=== PATIENT | female | born 2005 | race Hispanic/Latino ===

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

== ENCOUNTER 2023-02-13 17:36 | Emergency (ER) | payer OTHER ==
--- OUTSIDE RECORDS SUMMARY | 2023-02-13 17:41 | XMS REPORT | Continuity of Care Document ---
:2005 Author Organization [facility] [place] t Address [address] [place] [address] Care Team Providers Name Role Phone IVY GRECO Primary Care Physician Unavailable Ivy Greco Attending Clinician Unavailable ANABELA PHOENIX Attending Clinician Unavailable ANABELA PHOENIX Attending Clinician Unavailable Frankie ROMAN, Manny Attending Clinician MANNY DAVID Attending Clinician Unavailable Doctor Unassigned, [place] Attending Clinician Unavailable IVORY BURROWS Attending Clinician Unavailable Ivory Burrows Attending Clinician Luis Gallardo MD Attending Clinician Chris London MD Attending Clinician KRANTHI WAGNER Attending Clinician Unavailable Theresa Lima PA-C Attending Clinician THERESA LIMA Attending Clinician Unavailable Brenda Gordon Attending Clinician Manuel Crowder MD Attending Clinician Debbie Webb MD Attending Clinician DEBBIE WEBB Attending Clinician Unavailable IVORY BURROWS Admitting Clinician Unavailable Payers Payer Name Policy Type Policy Number Effective Date Expiration Date S jered [place] [id number] 2020 CHILDREN'S 00:00:00 [place] [id number] 2022 STAR 00:00:00 MEDICAID [facility] [id number] 2020 STAR 00:00:00 [place] [facility] C1 [id number] 2013 [facility] HEALTH PLAN 00:00:00 - [facility] Problems Condition Condition Condition Status Onset Resolution Last Treating Co mments Source Name Details Category Date Date Treatment Clinician Date Dysuria Dysuria Disease Active Univers 4-20 ity of 00:00: [address] Branch Sprain of Sprain of Disease [...] alth 00:00: 00 Herpes Herpes Disease Active 0 Univers simplex simplex 8-10 [place]y [place] Screen for Screen for Disease Active U nivers sexually sexually 3-19 [place] transmit[place] d diseases 00 Ri dical Branch 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 [facility] [id number] Panic Problem Active Common disorder Spirit [episodic - CHI paroxysmal [facility] anxiety] [facility] [id number] Generalize Problem Active Com mon d anxiety Spirit disorder - [facility] [id number] 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 [facility] prior episode [id number] Primary Problem Active Common insomnia Spirit - [facility] Allergies, Adverse Reactions, Alerts Allergy Allergy Status Severity Reaction(s) Onset Inactive Treating Comm ents Source Name Type Date Date Clinician NO KNOWN Drug Active Univers ALLERGIE Class ity of S [facility] NO KNOWN Allergy Active [facility] Social History Social Habit Start Date Stop Date Quantity Comments Source History [facility] Alcohol Std Drinks History [facility] Alcohol Binge History of Tobacco Common Spirit - Use [facility] Exposure to Not sure University of SARS-CoV-2 (event) [facility] Sexual orientation [facility] History of Social 2023-01-10 2023-01-10 Univers ity of function 00:00:00 00:00:00 [facility] Alcohol intake 2021-10-26 2021-10-26 Ex-drinker BHARGAV [facility] Ajit es 00:00:00 00:00:00 (finding) [facility] Tobacco use and 2021-10-07 2021-10-[address] [facility] [address] Sakshi kes exposure 00:00:00 00:00:00 tobacco non-user [facility] History [facility] 2020-09-24 2020-09-24 1 [facility] Alcohol Frequency 00:00:00 00:00:00 Sex Assigned At [birth year] BHARGAV Jacobson kes 00:00:00 00:00:00 [facility] Smoking Status Start Date Stop Date Source Never smoked tobacco [facility] Medications Ordered Filled Start Stop Current Ordering Indication Dosage Frequency Signature Comments Components Source Medication Medication Date Date Medication? Clinician (SIG) Name Name metroNIDAZO 2022-03 Yes [id number] 500mg Take 1 Univers LE (FLAGYL) 2-02 tablet by ity of 500 mg 00:00: mouth [place] tablet 00 every 12 Medical (twelve) Branch hours. fluconazole 2022-03- Yes [id number] 150mg Take 1 Univers (DIFLUCAN) 2-02 -03 tablet by ity of 150 mg 00:00[place] 05:59 [place] :[place] now for 1 Medical dose. Branch metroNIDAZO 2022-03 Yes [id number] 500mg Take 1 Univers LE (FLAGYL) 0-31 tablet by ity of 500 mg 00:00: mouth [place] tablet 00 every 12 Medical (twelve) Branch hours. metroNIDAZO 2022-03 Yes [id number] 500mg Take 1 Univers LE (FLAGYL) 0-31 tablet by ity of 500 mg 00:00: mouth [place] tablet 00 every 12 Medical (twelve) Branch hours. metroNIDAZO 2022-03 Yes [id number] 500mg Take 1 Univers LE (FLAGYL) 0-31 tablet by ity of 500 mg 00:00: mouth [place] tablet 00 every 12 Medical (twelve) Branch hours. metroNIDAZO 2022-03 Yes [id number] 500mg Take 1 Univers LE (FLAGYL) 0-31 tablet by ity of 500 mg 00:00: mouth [place] tablet 00 every 12 Medical (twelve) Branch hours. metroNIDAZO 2022-03 Yes [id number] 500mg Take 1 Univers LE (FLAGYL) 0-31 tablet by ity of 500 mg 00:00: mouth [place] tablet 00 every 12 Medical (twelve) Branch hours. metroNIDAZO 2022-03 Yes [id number] 500mg Take 1 Univers LE (FLAGYL) 0-31 tablet by ity of 500 mg 00:00: mouth [place] tablet 00 every 12 Medical (twelve) Branch hours. metroNIDAZO 2022-03 Yes [id number] 500mg Take 1 Univers LE (FLAGYL) 0-31 tablet by ity of 500 mg 00:00: mouth [place] tablet 00 every 12 Medical (twelve) Branch hours. metroNIDAZO 2022-03 Yes [id number] 500mg Take 1 Univers LE (FLAGYL) 0-31 tablet by ity of 500 mg 00:00: mouth [place] tablet 00 every 12 Medical (twelve) Branch hours. Nitrofurant 2022- No [id number] 100mg Take 1 Univers oin&Nit. 4-24 05-02 [...] MG tablet 14:01: daily. Medica l 54 Center busPIRone Yes 15mg Take [address] (BUSPAR) 15 8-15 by mouth [facility] MG tablet 14:01: as needed. Me dical 54 Center traZODone Yes 50mg QD Take [address] (DESYREL) 8-15 by mouth [facility] 50 MG 14:01: nightly. Medical tablet 54 Center etonogestre 0 Yes 68mg [address] [facility] L 8-15 Subdermal [facility] (Nexplanon) 14:01: route Medic al 68 mg 54 once. Center implant citalopram 0 Yes 20mg QD Take [address] (CeleXA) 20 8-15 by mouth Luke [facility] MG tablet 14:01: daily. Medica l 54 Center busPIRone 0 Yes 15mg Take [address] (BUSPAR) 15 8-15 by mouth [facility] MG tablet 14:01: as needed. Me dical 54 Center traZODone 0 Yes 50mg QD Take [address] (DESYREL) 8-15 by mouth [facility] 50 MG 14:01: nightly. Medical tablet 54 Center etonogestre 0 Yes 68mg [address] [facility] L 8-15 Subdermal [facility] (Nexplanon) 14:01: route Medic al 68 mg 54 once. Center implant citalopram 0 Yes 20mg QD Take [address] (CeleXA) 20 8-15 by mouth [facility] MG tablet 14:01: daily. Medica l 54 Center busPIRone 0 Yes 15mg Take [address] (BUSPAR) 15 8-15 by mouth [facility] MG tablet 14:01: as needed. Ri dical 54 Center traZODone 0 Yes 50mg QD Take [address] (DESYREL) 8-15 by mouth [facility] 50 MG 14:01: nightly. Medical tablet 54 Center etonogestre 0 Yes 68mg [address] [facility] L 8-15 Subdermal [facility] (Nexplanon) 14:01: route Medic al 68 mg 54 once. Center implant fluconazole 2021- No [id number] 150mg Take 1 Univers 150 mg 3-24 03-25 tablet by ity of tablet 00:00: 04:59 [place] now for 1 Medical dose. Branch traZODone 2021-0 Yes Univers 50 mg 3-06 ity of tablet 00:00: [place] 00 Medical Branch traZODone 2021-0 Yes Univers 50 mg 3-06 ity of tablet 00:00: [place] 00 Medical Branch traZODone 2022-0 Yes Univers 50 mg 3-06 ity of tablet 00:00: [place] 00 Medical Branch traZODone 2022-0 Yes Univers 50 mg 3-06 ity of tablet 00:00: [place] 00 Medical Branch traZODone 2-0 Yes Univers 50 mg 3-06 ity of tablet 00:00: [place] 00 Medical Branch traZODone 2022-0 Yes Univers 50 mg 3-06 ity of tablet 00:00: [place] 00 Medical Branch traZODone 2022-0 Yes Univers 50 mg 3-06 ity of tablet 00:00: [place] 00 Medical Branch traZODone 2-0 Yes Univers 50 mg 3-06 ity of tablet 00:00: [place] Medical [facility] traZODone 2-0 Yes Univers 50 mg 3-06 ity of tablet 00:00: [place] Medical [facility] traZODone 2022-0 Yes Univers 50 mg 3-06 ity of tablet 00:00: [place] 00 Medical Branch traZODone 2-0 Yes Univers 50 mg 3-06 ity of tablet 00:00: [place] 00 Medical Branch traZODone 2022-0 Yes Univers 50 mg 3-06 ity of tablet 00:00: [place] 00 Medical Branch traZODone 2-0 Yes Univers 50 mg 3-06 ity of tablet 00:00: [place] 00 Medical Branch traZODone 2022-0 Yes Univers 50 mg 3-06 ity of tablet 00:00: [place] 00 Medical Branch traZODone 2022-0 Yes Univers 50 mg 3-06 ity of tablet 00:00: [place] 00 Medical Branch traZODone 2022-0 Yes Univers 50 mg 3-06 ity of tablet 00:00: [place] [address] Medical Branch citalopram 2-0 Yes 20mg Take 1 Unive rs 20 mg 2-24 tablet by ity of tablet 00:00: mouth in [place] the Medical morning. Branch citalopram 2-0 Yes 20mg Take 1 Unive rs 20 mg 2-24 tablet by ity of tablet 00:00: mouth in [place] the Medical morning. Branch citalopram 2-0 Yes 20mg Take 1 Unive rs 20 mg 2-24 tablet by ity of tablet 00:00: mouth in [place] the Medical morning. Branch citalopram 2022-0 Yes 20mg Take 1 Unive rs 20 mg 2-24 tablet by ity of tablet 00:00: mouth in [place] the Medical morning. Branch citalopram 2022-0 Yes 20mg Take 1 Unive rs 20 mg 2-24 tablet by ity of tablet 00:00: mouth in [place] the Medical morning. Branch citalopram 2022-0 Yes 20mg Take 1 Unive rs 20 mg 2-24 tablet by ity of tablet 00:00: mouth in [place] the Medical morning. Branch citalopram 2022-0 Yes 20mg Take 1 Unive rs 20 mg 2-24 tablet by ity of tablet 00:00: mouth in [place] the Medical morning. Branch citalopram 2022-0 Yes 20mg Take 1 Unive rs 20 mg 2-24 tablet by ity of tablet 00:00: mouth in [place] the Medical morning. Branch citalopram 2022-0 Yes 20mg Take 1 Unive rs 20 mg 2-24 tablet by ity of tablet 00:00: mouth in [place] the Medical morning. Branch citalopram 2022-0 Yes 20mg Take 1 Unive rs 20 mg 2-24 tablet by ity of tablet 00:00: mouth in [place] the Medical morning. Branch citalopram 2022-0 Yes 20mg Take 1 Unive rs 20 mg 2-24 tablet by ity of tablet 00:00: mouth in [place] the Medical morning. Branch citalopram 2022-0 Yes 20mg Take 1 Unive rs 20 mg 2-24 tablet by ity of tablet 00:00: mouth in [place] the Medical morning. Branch citalopram 2022-0 Yes 20mg Take 20 mg U nivers 20 mg 2-24 by mouth ity of tablet 00:00: daily. [place] Medical Branch citalopram 2022-0 Yes 20mg Take 20 mg U nivers 20 mg 2-24 by mouth ity of tablet 00:00: daily. [place] Medical Branch citalopram 2022-0 Yes 20mg Take 20 mg U nivers 20 mg 2-24 by mouth ity of tablet 00:00: daily. [place] Medical Branch citalopram 2022-0 Yes 20mg Take 20 mg U nivers 20 mg 2-24 by mouth ity of tablet 00:00: daily. [address] predniSONE predniSONE 0 2021- No QD 20 MG 20 MG 03-24 00:00: 00:00 00 :00 predniSONE predniSONE 2021-0 2021- No QD predniSONE 20 MG 20 MG 03-24 20 MG 00:00: 00:00 00 :00 citalopram Yes 10mg QD Take 10 mg U T (CeleXA) 10 7-13 by mouth 1 He alth MG tablet 00:00: (one) time 00 each day. citalopram Yes 10mg QD Take 10 mg U T (CeleXA) 10 7-13 by mouth 1 He alth MG tablet 00:00: (one) time 00 each day. citalopram Yes 10mg QD Take 10 mg U T (CeleXA) 10 7-13 by mouth 1 He alth MG tablet 00:00: (one) time 00 each day. Natroba 0.9 Natroba 0.9 No [place] % [...] at the tablet 00 same time. Nitrofurant 2019- Yes [id number] 100mg Take 1 Univers oin&Nit. 2-16 capsule by ity o f [place] 00:[place]: [place] 100 mg 00 (two) Medical capsule times Branch daily. Nitrofurant 2019-03 Yes [id number] 100mg Take 1 Univers oin&Nit. 2-16 capsule by ity o f Macrocryst 00:00: mouth [place] 100 mg 00 (two) Medical capsule times Branch daily. Nitrofurant 2019-03 Yes [id number] 100mg Take 1 Univers oin&Nit. 2-16 capsule by ity o f Mac[place] 00:00: mouth [place] 100 mg 00 (two) Medical capsule times Branch daily. Nitrofurant 2019-03 Yes [id number] 100mg Take 1 Univers oin&Nit. 2-16 capsule by ity o f [place] 00:[place]: mouth [place] 100 mg 00 (two) Medical capsule times Branch daily. Nitrofurant 2019-03 Yes [id number] 100mg Take 1 Univers oin&Nit. 2-16 capsule by ity o f [place] 00:[place]: mouth [place] mg 00 (two) Medical capsule times Branch daily. Nitrofurant 2019-03 Yes [id number] 100mg Take 1 Univers oin&Nit. 2-16 capsule by ity o f [place] 00:[place]: mouth [place] 100 mg 00 (two) Medical capsule times Branch daily. Nitrofurant 2019-03 Yes [id number] 100mg Take 1 Univers oin&Nit. 2-16 capsule by ity o f [place] 00:[place]: mouth [place] 100 mg 00 (two) Medical capsule times Branch daily. Nitrofurant 2019-03 Yes [id number] 100mg Take 1 Univers oin&Nit. 2-16 capsule by ity o f [place] 00:00: mouth [place] mg 00 (two) Medical capsule times Branch daily. Nitrofurant 2019-03 Yes [id number] 100mg Take 1 Univers oin&Nit. 2-16 capsule by ity o f [place] 00:[place]: mouth [place] mg 00 (two) Medical capsule times Branch daily. Nitrofurant 2020- Yes [id number] 100mg Take 1 Univers oin&Nit. 2-16 capsule by ity o f [place] 00:[place]: mouth [place] mg 00 (two) Medical capsule times Branch daily. Nitrofurant 2019- Yes [id number] 100mg Take 1 Univers oin&Nit. 2-16 capsule by ity o f Mac[place] 00:00: mouth [place] 100 mg 00 (two) Medical capsule times Branch daily. Nitrofurant 2020- Yes [id number] 100mg Take 1 Univers oin&Nit. 2-16 capsule by ity o f Mac[place] 00:[place]: mouth [place] mg 00 (two) Medical capsule times Branch daily. Nitrofurant 2019- Yes [id number] 100mg Take 1 Univers oin&Nit. 2-16 capsule by ity o f [place] 00:[place]: mouth [place] 100 mg 00 (two) Medical capsule times Branch daily. Nitrofurant 2019- Yes [id number] 100mg Take 1 Univers oin&Nit. 2-16 capsule by ity o f Mac[place] 00:00: mouth [place] mg 00 (two) Medical capsule times Branch daily. Nitrofurant 2019- Yes [id number] 100mg Take 1 Univers oin&Nit. 2-16 capsule by ity o f [place] 00:00: mouth [place] mg 00 (two) Medical capsule times Branch daily. Nitrofurant 2019- Yes [id number] 100mg Take 1 Univers oin&Nit. 2-16 capsule by ity o f Mac[place] 00:00: mouth [place] mg 00 (two) Medical capsule times Branch daily. valACYclovi 2020-0 Yes [id number] 1g Take 1 Univers r 1 gram 8-10 tablet by ity of tablet 00:00: mouth 2 (two) Medical times Branch daily. valACYclovi 2020-0 Yes [id number] 1g Take 1 Univers r 1 gram 8-10 tablet by ity of tablet 00:00: mouth 2 (two) Medical times Branch daily. valACYclovi 2020-0 Yes [id number] 1g Take 1 Univers r 1 gram 8-10 tablet by ity of tablet 00:00: mouth 2 (two) Medical times Branch daily. valACYclovi 2020-0 Yes [id number] 1g Take 1 Univers r 1 gram 8-10 tablet by ity of tablet 00:00: mouth 2 (two) Medical times Branch daily. valACYclovi 2020-0 Yes [id number] 1g Take 1 Univers r 1 gram 8-10 tablet by ity of tablet 00:00: mouth 2 (two) Medical times Branch daily. valACYclovi 2020-0 Yes [id number] 1g Take 1 Univers r 1 gram 8-10 tablet by ity of tablet 00:00: mouth 2 (two) Medical times Branch daily. valACYclovi 2020-0 Yes [id number] 1g Take 1 Univers r 1 gram 8-10 tablet by ity of tablet 00:00: mouth 2 (two) Medical times Branch daily. valACYclovi 2020-0 Yes [id number] 1g Take 1 Univers r 1 gram 8-10 tablet by ity of tablet 00:00: mouth 2 (two) Medical times Branch daily. valACYclovi 2020-0 Yes [id number] 1g Take 1 Univers r 1 gram 8-10 tablet by ity of tablet 00:00: mouth 2 (two) Medical times Branch daily. valACYclovi 2020-0 Yes [id number] 1g Take 1 Univers r 1 gram 8-10 tablet by ity of tablet 00:00: mouth (two) Medical times Branch daily. valACYclovi 2020-0 Yes [id number] 1g Take 1 Univers r 1 gram 8-10 tablet by ity of tablet 00:00: mouth 2 (two) Medical times Branch daily. valACYclovi 2020-0 Yes [id number] 1g Take 1 Univers r 1 gram 8-10 tablet by ity of tablet 00:00: mouth 2 (two) Medical times Branch daily. valACYclovi 2020-0 Yes [id number] 1g Take 1 Univers r 1 gram 8-10 tablet by ity of tablet 00:00: mouth 2 (two) Medical times Branch daily. valACYclovi 2020-0 Yes [id number] 1g Take 1 Univers r 1 gram 8-10 tablet by ity of tablet 00:00: mouth 2 (two) Medical times Branch daily. valACYclovi 2020-0 Yes [id number] 1g Take 1 Univers r 1 gram 8-10 tablet by ity of tablet 00:00: mouth 2 (two) Medical times Branch daily. valACYclovi 2020-0 Yes [id number] 1g Take 1 Univers r 1 gram 8-10 tablet by ity of tablet 00:00: mouth 2 (two) Medical times Branch daily. traZODone traZODone No 1{table QD traZODone HCl [...] % % 0.9 % Citalopram Citalopram No Citalopram Hydrobromid Hydrobromid Hydrobromi e 10 MG e 10 MG de 10 MG traZODone traZODone No 1{table QD traZODone HCl 50 MG HCl 50 MG t_at_be HCl 50 MG dtime} traZODone traZODone No traZODone HCl 50 MG HCl 50 MG HCl 50 MG busPIRone busPIRone No busPIRone HCl 5 [...] Time Observation Value Comments Source Systolic blood 2023-02-09 20:55:00 114 mm[Hg] [facility] Diastolic blood 2023-02-09 20:55:00 73 mm[Hg] [facility] Heart rate 2023-02-09 20:55:00 86 /min [facility] Body temperature 2023-02-09 20:55:00 36.72 Radhika [facility] Respiratory rate 2023-02-09 20:55:00 16 /min [facility] Body height 2023-02-09 20:55:00 165.1 cm [facility] Body weight 2023-02-09 20:55:00 64.093 kg [facility] BMI 2023-02-09 20:55:00 23.51 kg/m2 [facility]i ty [facility] [place] [facility] Systolic blood 2023-01-10 19:16:00 119 mm[Hg] Univer sity of pressure [place] [facility] Diastolic blood 2023-01-10 19:16:00 71 mm[Hg] Unive rsity of pressure [facility] Heart rate 2023-01-10 19:16:00 78 /min Universi ty of [facility] Body temperature 2023-01-10 19:16:00 36.67 Radhika Univ ersity of [place] [facility] Respiratory rate 2023-01-10 19:16:00 17 /min Univ ersity of [facility] Body height 2023-01-10 19:16:00 165.1 cm Universi ty of [facility] Body weight 2023-01-10 19:16:00 63.957 kg Universi ty of [facility] BMI 2023-01-10 19:16:00 23.46 kg/m2 Universi ty of [facility] Systolic blood 2022-06-30 16:38:00 111 mm[Hg] Univer sity of pressure [place] [facility] Diastolic blood 2022-06-30 16:38:00 72 mm[Hg] Unive rsity of pressure [facility] Heart rate 2022-06-30 16:38:00 83 /min [facility] [place] [facility] Respiratory rate 2022-06-30 16:38:00 18 /min Univ ersity of [facility] Body height 2022-06-30 16:38:00 165.1 cm Universi ty of [facility] Body weight 2022-06-30 16:38:00 66.679 kg [facility] [place] [facility] BMI 2022-06-30 16:38:00 24.46 kg/m2 [facility] [place] [facility] height 2021-10-27 16:30:00 65 [in_i] [facility] weight 2021-10-27 16:30:00 167 [lb_av] [facility] temperature 2021-10-27 16:30:00 98 [degF] Common S pirit [facility] bmi 2021-10-27 16:30:00 27.79 kg/m2 Common [facility] HEIGHT 2021-10-25 09:10:00 165.1 cm WEIGHT 2021-10-25 09:10:00 75.932 kg HEIGHT 2021-10-21 08:46:00 165.1 cm WEIGHT 2021-10-21 08:46:00 77.565 kg HEIGHT 2021-10-25 09:10:00 165.1 cm WEIGHT 2021-10-25 09:10:00 75.932 kg HEIGHT 2021-10-21 08:46:00 165.1 cm WEIGHT 2021-10-21 08:46:00 77.565 kg HEIGHT 2021-10-07 15:37:00 165.1 cm WEIGHT 2021-10-07 15:37:00 76.204 kg HEIGHT 2021-10-07 15:37:00 165.1 cm WEIGHT 2021-10-07 15:37:00 76.204 kg height 2021-08-24 10:00:00 65 [in_i] [facility] weight 2021-08-24 10:00:00 174.6 [lb_av] [facility] temperature 2021-08-24 10:00:00 98.1 [degF] [facility] bmi 2021-08-24 10:00:00 29.05 kg/m2 [facility] oximetry 2021-08-24 10:00:00 100 % [facility] respiratory rate 2021-08-24 10:00:00 16 /min Comm on [facility] blood pressure 2021-08-24 10:00:00 121 mm[Hg] Common [facility] - systolic [facility] blood pressure 2021-08-24 10:00:00 76 mm[Hg] Common [facility] - diastolic [facility] height 2021-07-28 13:00:00 65 [in_i] [facility] weight 2021-07-28 13:00:00 180 [lb_av] [facility] temperature 2021-07-28 13:00:00 97 [degF] [facility] bmi 2021-07-28 13:00:00 29.95 kg/m2 [facility] Systolic blood 2021-06-02 20:03:00 117 mm[Hg] Univer sity of [facility] Diastolic blood 2021-06-02 20:03:00 80 mm[Hg] Unive rsity of pressure [facility] Heart rate 2021-06-02 20:03:00 73 /min Universi ty [facility] Body temperature 2021-06-02 20:03:00 37 [facility] 2021-06-02 20:03:00 18 /min [facility] Body height 2021-06-02 20:03:00 165.1 cm [facility] Body weight 2021-06-02 20:03:00 83.462 kg [facility] BMI 2021-06-02 20:03:00 30.62 kg/m2 [facility] Body mass index 2021-06-02 20:03:00 95.07 % Unive rsity of (BMI) [Percentile] [facility] Per age and sex Branch height 2021-03-24 15:00:00 65 [in_i] [facility] weight 2021-03-24 15:00:00 180 [lb_av] [facility] bmi 2021-03-24 15:00:00 29.95 kg/m2 [facility] height 2021-01-25 16:30:00 65 [in_i] [facility] weight 2021-01-25 16:30:00 169 [lb_av] [facility] temperature 2021-01-25 16:30:00 98 [degF] [facility] bmi 2021-01-25 16:30:00 28.12 kg/m2 [facility] Systolic blood 2021-10-25 12:50:00 97 mm[Hg] [facility] Diastolic blood 2021-10-25 12:50:00 70 mm[Hg] [facility] Heart rate 2021-10-25 12:50:00 62 /min [facility] Body temperature 2021-10-25 12:50:00 36.39 Radhika [facility] Respiratory rate 2021-10-25 12:50:00 22 /min [facility] Oxygen saturation in 2021-10-25 12:50:00 99 /min [facility] Arterial blood by Medical Ce nter Pulse oximetry Body height 2021-10-25 09:10:00 165.1 cm [facility] Body weight 2021-10-25 09:10:00 75.932 kg [facility] BMI 2021-10-25 09:10:00 27.86 kg/m2 [facility] Body mass index 2021-10-25 09:10:00 90.56 % [facility] (BMI) [Percentile] Medical C enter Per age and sex Procedures Procedure Date / Time Performed Performing Clinician [facility] e [facility] PATIENT FINANCIAL 2022-06-30 16:33:12 Doctor Unassigned, No [facility] POLICY Name Medical Branch CONSENT/REFUSAL FOR 2022-06-30 16:32:51 Doctor Unassigned, No [facility] DIAGNOSIS AND Name Medical Branch TREATMENT ASSIGNMENT OF BENEFITS 2022-06-30 16:32:33 Doctor Unassigned, No [facility] Name Medical Branch REPORT OF PROCEDURE - 2021-10-25 14:30:27 [facility] T[facility] EXAM 2021-10-25 11:28:00 Ivory Burrows [facility] ENDOSCOPY, UPPER GI 2021-10-25 11:10:00 Ivory Burrows [facility] TRACT, WITH BIOPSY Center COLONOSCOPY, WITH 2021-10-25 11:10:00 Ivory Burrows [facility] BIOPSY Center REPORT OF PROCEDURE - 2021-10-25 11:09:59 Ivory Burrows [facility] ENDOSCOPY URL Center POCT , URINE 2021-10-25 09:10:00 Luis Gallardo [facility] POCT , URINE 2021-10-20 09:01:00 Reena Dewitt [facility] Plan of Care Planned Activity Planned Date Details Comments Source Future Scheduled 2022-11-11 Influenza Vaccine (#1) C [facility] Test 00:00:00 [code = Influenza Vaccine Me dical Center (#1)] Future Scheduled 2022-11-11 INFLUENZA VACCINE (Season [facility] 00:00:00 Ended) [code = INFLUENZA Med ical Center VACCINE (Season Ended)] Future Scheduled 2022-10-[address] [facility] 00:00:00 Counseling and Screening Med ical Center (12+) [code = Tobacco Cessation Counseling and Screening (12+)] Future Scheduled 2022-10-[address] [facility] 00:00:00 Counseling and Screening Med ical Center (12+) [code = Tobacco Cessation Counseling and Screening (12+)] Future Scheduled 2022-03-[address] [facility] 00:00:00 (12+) [code = DEPRESSION Med ical Center SCREENING (12+)] Future Scheduled 2022-03-[address] [facility] 00:00:00 (12+) [code = DEPRESSION Med ical Center SCREENING (12+)] Future Scheduled 2022 DTAP/TDAP/TD VACCINES ([address] [facility] 00:00:00 - Tdap) [code = Medical Cent er DTAP/TDAP/TD VACCINES (1 - Tdap)] Future Scheduled 2022 DTAP/TDAP/TD VACCINES ([address] [facility] 00:00:00 - Tdap) [code = Medical Cent er DTAP/TDAP/TD VACCINES (1 - Tdap)] Future Scheduled 2021-11-11 INFLUENZA VACCINE (#1) [facility] [code = INFLUENZA VACCINE Me dical Center (#1)] Future Scheduled 2021-03-[address] [facility] 00:00:00 (12+) [code = DEPRESSION Med ical Center SCREENING (12+)] Future Scheduled 2021 HEPATITIS C [facility]CRE[facility]:00 [code = HEPATITIS C Medical Center SCREENING] Future Scheduled 2021 HEPATITIS C [facility]00 [code = HEPATITIS C Medical Center SCREENING] Future Scheduled 2021 HEPATITIS C [facility]00 [code = HEPATITIS C Medical Center SCREENING] Future Scheduled [address] [facility]:00 virus screening Medical Cent er (procedure) [code = 110070148] Future Scheduled 2010 DTAP/TDAP/TD VACCINES ([address] [facility] 00:00:00 - Tdap) [code = Medical Cent er DTAP/TDAP/TD VACCINES (1 - Tdap)] Future Scheduled 2005-02-19 WELL CHILD EXAM (>[address] [facility] 00:00:00 and <= 18 YEARS) [code = Med ical Center WELL CHILD EXAM (>2 YEARS and <= 18 YEARS)] Future Scheduled 2003 COVID-19 VACCINE (#1) [facility] 00:[facility]:00 [code = COVID-19 VACCINE Med ical Center (#1)] Future Scheduled 2003 COVID-19 VACCINE (#1) [facility] 00:00:00 [code = COVID-19 VACCINE Med ical Center (#1)] Future Scheduled 2003 COVID-19 VACCINE (#1) [facility] 00:00:00 [code = COVID-19 VACCINE Med ical Center (#1)] Encounters Start End Encounter Admission Attending Care Care Encounter Source Date/Time Date/Time Type Type Clinicians Facility Department ID 2022-10-03 [facility] [id number] Common 16:23:00 Ivy 48099 [facility] 2022-01-21 Out[facility] Greco, [facility] [id number] Common 10:43:02 Ivy 96253 [facility] 2021-08-24 Outpatient Greco, [facility] [id number] Common 10:13:03 Ivy 06147 [facility] 2021-07-28 Outpatient Greco, [facility] [id number] Common 12:57:01 Ivy [facility] 2021-07-27 Outpatient Greco, STLMLC STLMLC [id number] Common 10:23:28 Ivy [facility] 2021-05-12 Outpatient Greco, STLMLC STLC [id number] Common 11:44:02 Ivy [facility] 2021-05-10 Outpatient Greco, STLMLC STLMLC [id number] Common 09:41:01 Ivy [facility] 2021-04-07 Outpatient Greco, STLMLC STLC [id number] Common 14:34:24 Ivy [facility] 2021-04-07 Outpatient Greco, STL[facility]C STLC [id number] Common 14:01:17 Ivy 99676 [facility] 2021-04-07 Outpatient Greco, [facility]C STLC [id number] Common 13:37:09 Ivy 61939 [facility] 2021-04-07 Outpatient Greco, STLMLC STLC [id number] Common 13:25:00 Ivy 13548 [facility] 2021-04-07 Outpatient Greco, STLMLC STLC [id number] Common 13:02:18 Ivy 64179 [facility] 2021-04-07 Outpatient Greco, STLMLC STLC [id number] Common 12:51:24 Ivy 51151 [facility] 2020-09-23 Outpatient [facility] [id number] [place] 16:11:30 Health 2023-02-16 2023-02-16 Outpatient R ANABELA [facility] [id number] [facility] 15:30:00 15:30:00 ANABELA [facility] devang [facility] 2023-02-11 2023-02-11 Case Neelima [facility] [id number] [facility] 00:00:00 00:00:00 Management Anabela grijalva [id number] [place] [id number] [address] 2023-02-09 2023-02-09 Outpatient R ANABELA [facility] [id number] Univers 15:00:00 15:27:29 DEXTER-ROSANA ARAIZAL ity [facility] 2023-02-09 2023-02-09 Office [facility] 1.2.840.114 [id number] Univers 15:00:00 15:27:29 Visit sAnabela [id number] [place] [id number] [address] 2023-01-17 2023-01-17 [facility]phone [facility] 1.2.840.114 [id number] [facility] 00:00:00 00:00:00 sAnabela [id number] ity of [facility] [place] [phone] Ri dical NAL [address] [place] [address] 2023-01-10 2023-01-10 Outpatient R ANABELA [facility] [id number] Univers 14:00:00 14:28:58 [facility]10 2023-01-10 [facility] 1.2.840.114 [id number] Univers 14:00:00 14:28:58 Visit sAnabela [id number] [place] [id number] Ri dical NAL [address] [place] [address] 2022-07-04 2022-07-04 (TEL) STLMLC STLMLC [id number] Co mmon 00:00:00 00:00:00 [facility] 2022-07-04 2022-07-04 Telephone Frankie [facility] 1.2.840.11 [id number] Univers 00:00:00 00:00:00 Manny [place] [id number] it [place] [id number] [address] 2022-06-30 2022-06-30 Office [facility] 1.2.840.114 [id number] Univers 11:30:00 11:59:43 Visit Manny [place] [id number] it [place] [id number] [address] 2022-06-30 2022-06-30 Out[facility] B [id number] Univers 11:30:00 11:59:43 MANNY DAVID [facility] 2022-06-30 2022-06-30 Outpatient R MANNY DAVID [facility] B [id number] Univers 11:30:00 11:30:00 MANNY DAVID [facility] 2022-06-30 2022-06-30 Telephone [facility] 1.2.840.11 [id number] Univers 00:00:00 00:00:00 Manny [place] [id number] it [place] [id number] [address] 2022-06-30 2022-06-30 Orders Doctor KIMBERLI 1.2.840.114 [id number] Univers 00:00:00 00:00:00 Only Unassigned, AKIKO [id number] ity of [place] [facility] 4.2.7.2.686 [place] [id number] [place] [address] [address] 2021-10-28 2021-10-28 (TEL) STLMLC STLMLC [id number] Co mmon 00:00:00 00:00:00 [facility] 2021-10-27 2021-10-27 OFFICE STLMLC STLMLC [id number] Co mmon 00:00:00 00:00:00 VISIT EST Spir it PT LEVEL 3 - [facility] 2021-10-25 2021-10-25 Outpatient EL STORMY, [facility] Surgery [id number] [facility] 08:28:00 13:05:00 [facility] 2021-10-25 2021-10-25 [facility] [id number] 08:28:00 13:05:00 Encounter [facility] 2021-10-25 2021-10-25 Anesthesia Luis Gallardo [facility] [id number] 11:20:00 11:57:00 Event [facility] 2021-10-25 2021-10-25 Surgery [facility] [id number] 10:30:00 11:30:00 [facility] 2021-10-25 2021-10-25 Travel [facility] [id number] [facility] 00:[facility]:00 00:00:00 [facility] 2021-10-21 2021-10-21 Outpatient [facility] SLE [id number] SLE 08:59:09 23:59:00 2021-10-21 2021-10-21 [facility] [id number] 08:05:00 23:59:00 Encounter [facility] 2021-10-21 2021-10-21 Travel [facility] [id number] [facility] 00:00:00 00:00:00 [facility] 2021-10-20 2021-10-20 Anesthesia Lita [facility] [id number] 10:11:00 10:11:00 Event [facility] 2021-10-20 2021-10-20 Outpatient EL AILYNGENEVIEVEJoellen, SLE Surgery [id number] [facility] 08:50:00 10:00:00 [facility] 2021-10-20 2021-10-20 [facility] [id number] 08:50:00 10:00:00 Encounter [facility] 2021-10-11 2021-10-[address] [facility] [id number] Univers 10:00:00 10:00:00 KRANTHI moreno [facility] 2021-10-07 2021-10-07 Outpatient EL SLE SLE [id number] [facility] 15:48:05 23:59:00 2021-10-07 2021-10-07 [facility] [id number] 15:48:05 23:59:00 [facility] 2021-10-07 2021-10-07 Travel [facility] [id number] [facility] 00:00:00 00:00:00 [facility] 2021-08-24 2021-08-24 OFFICE STLC STLMLC [id number] Co mmon 00:00:00 00:00:00 VISIT EST Spir it PT LEVEL 3 - [facility] 2021-08-23 2021-08-23 (TEL) STLMLC STLC [id number] Co mmon 00:00:00 00:00:00 [facility] 2021-07-28 2021-07-28 OFFICE STLMLC STLC [id number] Co mmon 00:00:00 00:00:00 VISIT Spirit ESTAB PT - CHI LEVEL 4 [facility] 2021-07-26 2021-07-26 (TEL) STLMLC STLMLC [id number] Co mmon 00:00:00 00:00:00 [facility] 2021-06-21 2021-06-21 (TEL) [facility] [id number] Co mmon 00:00:00 00:00:00 [facility] 2021-06-03 2021-06-03 [facility] [id number] Univers 00:00:00 00:00:00 Management Theresa KNOX 350.1.13.10 Michael 4.2.7.2.686 Irma LOWRY [id number] [address] 2021-06-03 2021-06-03 Telephone Janie MSRACHEAL 1.2.840.114 [id number] Univers 00:00:00 00:00:00 Theresa KNOX 350.1.13.10 i [place] [id number] Ri dical [address] 2021-06-02 2021-06-02 Office Janie [facility] [id number] Univers 13:30:00 14:00:00 Visit Theresa KNOX 350.1.13.10 i [place] [id number] Ri dic[address] 2021-06-02 2021-06-[address] [facility] [id number] Univers 13:30:00 13:30:00 THERESA tiffanie [facility] 2021-06-02 2021-06-[address] [facility] [id number] Univers 13:30:00 13:30:00 [facility] 2021-06-02 2021-06-02 Orders Doctor KIMBERLI 1.2.840.114 [id number] Univers 00:00:00 00:00:00 Only Unassigned, AKIKO 350.1.13.10 ity of [place] [facility] 4.2.7.2.686 [place] [id number] [address] 2021-05-31 2021-05-31 Letter KIMBERLI Gordon 1.2.840.114 [id number] Univers 00:00:00 00:00:00 (Out) Brenda WHARTON 350.1.13.10 it y of HOSPITAL 4.2.7.2.686 [place] [id number] [facility] [address] [place] 2021-05-19 2021-05-19 Orders Doctor KIMBERLI 1.2.840.114 [id number] Univers 00:00:00 00:00:00 Only Unassigned, AKIKO 350.1.13.10 ity of [place] [facility] 4.2.7.2.686 [place] [id number] [facility] [address] [place] 2021-05-12 2021-05-12 (TEL) [facility] [id number] Co mmon 00:00:00 00:00:00 [facility] 2021-03-26 2021-03-26 (TEL) STLMLC STLMLC [id number] Co mmon 00:00:00 00:00:00 [facility] 2021-03-24 2021-03-24 (TEL) STLMLC STLMLC [id number] Co mmon 00:00:00 00:00:00 [facility] 2021-03-24 2021-03-24 OFFICE STLMLC STLMLC [id number] Co mmon 00:00:00 00:00:00 VISIT EST Spir it PT LEVEL 3 [facility] 2021-01-25 2021-01-25 OFFICE STLMLC STLMLC [id number] Co mmon 00:00:00 00:00:00 VISIT Spirit [facility] PT - CHI LEVEL 4 [facility] 2020-10-27 2020-10-27 Outpatient STLMLC STLMLC [id number] Common 00:00:00 00:00:00 [facility] 2020-10-26 2020-10-26 Outpatient STLMLC STLMLC [id number] Common 00:00:00 00:00:00 [facility] 2020-10-23 2020-10-23 Outpatient STLMLC STLMLC [id number] Common 00:00:00 00:00:00 [facility] 2020-10-21 2020-10-21 Outpatient STLMLC STLMLC [id number] Common 00:00:00 00:00:00 [facility] 2020-09-24 2020-09-24 Office Apoorva [facility] 1.2.840.114 [id number] [place] 13:14:53 14:00:29 Visit LUISA Goodwin 350.1.13.58 H [facility] 9.2.7.2.686 LAKISHAZA 4 [id number] 2020-09-22 2020-09-22 Outpatient STLMLC STLMLC [id number] Common 00:00:00 00:00:00 [facility] 2020-07-22 2020-07-22 Outpatient STLMLC STLMLC [id number] Common 00:00:00 00:00:00 [facility] 2020-06-24 2020-06-24 Outpatient STLMLC STLMLC [id number] Common 00:00:00 00:00:00 [facility] 2020-06-24 2020-06-24 Outpatient STLMLC STLMLC [id number] Common 00:00:00 00:00:00 [facility] 2020-06-23 2020-06-23 Outpatient STLMLC STLMLC [id number] Common 00:00:00 00:00:00 [facility] 2020-03-24 2020-03-24 Office Ad, [facility] 1.2.840.114 [id number] 13:06:56 14:14:20 Visit Debbie Knox 350.1.13.10 [place] 4.2.7.2.686 Professio [id number] [address] 2020-03-24 2020-03-24 Outpatient R ADUM, [facility] [id number] Univers 13:00:00 13:00:00 General acute hospital 2020-03-24 2020-03-24 Orders Doctor KIMBERLI 1.2.840.114 [id number] 00:00:00 00:00:00 Only Unassigned, AKIKO 350.1.13.10 [place] [facility] 4.2.7.2.686 [id number] 2020-02-26 2020-02-26 Outpatient R ADUM, [facility] [id number] Univers 11:00:00 11:00:00 DEBBIE [facility] 2019-10-21 2019-10-21 Outpatient R ADUM, [facility] [id number] Univers 15:30:00 15:30:00 DEBBIE [facility] 2019-07-09 2019-07-09 Outpatient R JANIE, [facility] [id number] Univers 13:00:00 13:00:00 THERESA [facility] 2019-07-09 2019-07-09 Outpatient R JANIE, [facility] [id number] Univers 09:15:00 09:15:00 [facility] 2019-07-08 2019-07-[address] [facility] [id number] Univers 15:00:00 15:00:00 [facility] Results Test Description Test Time Test Comments Results Result Comments Source Tissue Exam 2021-10-26 14:33:25 Test Item Value Reference Range Interpretation Comme nts Case Report (test code = 104) Surgical Pathology Report Case: [id number] Authorizing Provider: Ivory Burrows Collected: 10/25/2021 11:28 AM Ordering Location: [facility] Endoscopy Received: 10/25/2021 01:51 PM [...] Biopsy, Random DIAGNOSIS (test code = 3220) d3tjcDYiHMBvl5dpQFZyqYLbOtJlDeCyTsLqOw p cdWMxIHtccnRmMVxlcGljOTYwMlxhbnNpXHNwbH NvZ4VtieqbXLytAL3lJM4hrKrhiHEahSRtFWTyE bXgy0pxb712iCUox8wwHKLKypazoKk3sMfxS00j y2P9GyhtD76yhCGgIMT2EBUoVWUhqOAoRIXvTAZ 7REFeaIGjQ6olTNYrCE1oqphkBXaoWBykJPLrdJ M5JDTbiPDwA0ShOBKrVYgrGERupxd2OiWbIr2wy MLxvEarGKudVLQtXXVjOZrhZYNhXrApSJ9wQ66M HSghUl3GYJpkPHROH0EJDSikoLDgIJQbxuCnqTt 9OfYpjOsoZmMqEOX5KsKwRSB8RPR6KBi5qPLpNb PjqLwzFBwwJYO3XcZkXBt7lEIxEeYkcQn2WWVfN IG5QNf1GJa7sPM5FSRjpOq2XoEnXNE1HxgbMXp8 bEa8BOJxdEd6PjUiTFV7WBDfXVIvXETVTV1EGR5 LFPQHKHTXF6MvB8hHSCDXVNPVQTqpKL6LJoROZF gPWONHYPRBPCrZRBJPJ3ORGD0BKCCtIB1DYNpYZ VOTNXVHQOxOE4HHVFFDZ3jOTPXLVRMPDKTpl0Ca XFCmuG6azuZxJOQathzxkCRnmEamNHwjSRMigWE qZLUPAgIZUL9EXBYMNQBFQE7ST67pYUUVG4VQRU lcdAGfYILodHWgFT5gO5fWI04JIbYAVCpZN92QD ADPXEViXWGHP6XQJSMLJJXRBGPUZggJSFIxrOVf LJByLOLigeSOOmEJJ97FZJEBGIEfBHMPJ5SGPAy kUjjZPFUGNgkjKAPlsOw4OjTezFwsLtAdWM8nL0 EDFP1BPMMbNOFFF2GAOPyBJNieFqYHT2NXDrVfU NWIIAjOSTkYGTRVZDFTG5SKPBUcvuBbFC8KWYQF J70WFsQZL4CvY9JpTQ0HUnUHTUyQTQUMYZSMDUI ZP5cSZ7BDMUvNGOaQXYFNVM4lkONfZYSgbirjxO VvgCcsHZJOKvLRP43RMIBWKQQoJXTKE9vRZCASL PDXFM4OQ5b1HLDdutzhtYjdSEzvhV29TwDzKWTV KVRMDC1XYcGMVCMPX9ZcY9dZKVUPJTZBZBzKACU AIBlKOPQJIFGLIWPHYW5KLYBlqTOeSX5iEq6cNR WFFGyWAY9OIJEIKaGQToTPZAUTOXYSSVdBHDirV Z0OEI5SCPpBNWWjAGRuZ0TGGdrkDOFpcEFgDCpg GFaytN8wQCNeSUOAZg1JFjDBVEgSZCZPXSMFMV5 PW5j5WPLfxonljCbuWAxzxS21ZrOqMJVZXBPXGP UQUlFDJ9WXBbHGWD9OY37SAAKRRQKURDIAP09DC aUMOOOQKV4DGT7XHTDVE2xGHUeXRALaAV3LUDSO V1wUGEZPHoKSKOsWRVMHD5NPGXNTVr0ENi9CPLi WELgtUQMmdDepQKznmdYmaYDvUKMcFUPQQU9IZI GXDG8II27lNOAPD4XUGOsclTRrGIzgHmCkCMyjo xqaAUSbAPAHQJ8SBPWrSZCWE6CTRNzPWRwhAn3F PDjyRTdUVMvINWVzBWrMLoQNFJJLVvgqS8WPNCH DPATOVK6BGNFCF49LNbmURR4PKHANWn5MVKKYXQ VQLPVielOpFY5PDdGOHTVXQkDKJJFXGSPGJrUPS tYANFYVL8DHGUDkM39IUDcrAK9MIKWVOG0KJGYG NJEXD8IuwXHjEIflSZmxpX7jPKHfwu26TLN3YgV tn2Y7GAY8OFVsGCVtx4beWMPnbOZyQaEvBjIeKg YwJvjzcUKvLCHgQgWzt8sml832qEIva8gdSNSiS zF9cOEaCSHlmBJxW847AYQeCZekm9faj2FzPGYu hSXsk0Z4KQCOwewddEw1qHskZ11du3U2BybrV3o jTQTaRRXdF8VsWN8nLYSuDdv9DYA1BDZ4RXKqPH EfJ2XcMY2kTIJziBMgBDj8j0xxkZjpRXBpEMQ4w 5iuOJmlmuYzVI9nnk5drIk6q5tttjUdDUFdFVLv xLJGMBWqS8OkfHnxTf0tnKh7kWbsNxxmLLG8Hip 0VB9boy82blu1eWfpEQIljffmIrZ8VBofFGWefz zzPFy8AUskOVZeoHX2AQGyjDIiK0AbFZPqUX8iz il8BRA1NChyCVAhLrQ7DFKemZWmKGJzzRnvLJce c069GCV0DtEiXP4vL7Rfh5J1gI0ykJUwEALvdYH mAqRlVLZkje4ppAKmIVxbq7WxZCE6fnS2aWRqeO MwXWAuQcG9TCkpZF7bhi51OQGzAIE8zf1lzXMep PxuzeEwfWKiTRnmC5VfTZJkf704DDBpS4TxQCHz i6D6rhAnFmGrZDRlbDJ6lcZ2HJMhLD2cexpud4t fNXsyRDacYIJkvoK2liV6DNOwkTEhJ6CtmR6dUO ClSF9kqojra5vfAMA5KAujBPCvNEX2TjDmOUWqy 1Vcwig7SpXlw0CweXFiYXylP44vq069JMAcrgPc Z3twtZHenalyvOEjmducXFdpbvR2HGUkTFsmgzz fMHZiHJwkM0nkFaBqCVJdnVntYJgda1RwTKZjUC CwOuHhqQNkEQJlIeb6YOMjuJWoQQPbKzXjI2mvb kteErGXAKEbe8nyE2sliVBDzQXoK1FtTKunsqQn OHlyGSldNvVdCRd2SU67FvCbJHSjhk40 COMMENT (test code = 3359) c9xcqMBtZYEdbQA3OqPpXUZol9rqp4JxiLRecKY rSIxwsCVjswNhgw89iJH7cQ80UX4nXRJpZsU8MT ZapzF4Dmb1FKVbBINmkCUbQ478t0ghp1lidjIzl XI8rGmhHQVvzzncPtK3KHzvVSIwmqptMNe4HVrc ERIerHR2QJNmsROhM9YuULTuDO0wtef7MCH2MDq bMFJyRgB0GRRqkKQpSAOqlIsoHArnh044FBO7Cr VyGUKinxHltZi5IpFcnTwnFJMbEDJ2UbJ7JMe1i JH9ZWYwhAmwNcVwEPL1AOYlMDl6qCHwZCPxwGr4 BkZeXHV1XlG5WAt2pCyoAEOzeKx4AOToNQS2QXB 4NNt2mXehVzEkoDpyFCA4JQfqvWYpwnagfkVwWV TrdwQYYPZ8IZEzNJzpxKVnFFLzvVyzlLrkcHVaa J0fiH0lpRYdz3anLOahvMyxpg8noBSsVISatNje fUCxIUYmhPu8AFJ3lXCyFS9cyAZlLJSapwDeegP xHEHbzECaHVPklwFvvxhpMkY9UAs2YQKkdeQaYK AnRVIqBNovAGHybPtcdeKvVJftpJgdDCLaIDH5w kvyQBezaWjnd2JqD6TasvPxbzItD6Zgr15xGDMf SPxtJZVpyPQgJ6FjJBfef9OwLKAmzmIqEgoqSTa ox4E2KFFif4TeOEAogNCzzdWudOzweEpwHNkuKw JePT79vTYxksVbszXalFCiGBuiwCTqqy5bYCfpj HZsBDKjl85cZLDpIKivKdruKWH5KmRihI1qY0Tx NSUnlPbgKwAaqOQyIOMlSZachzkmWHcuHS23ZQS nkPkbTLGzgxOsXADmONW8qV9gSVjmEmvdLI2IVX pFmiAosP6oVcYknHieulRaagBamdgfGPHzg70gF P45aFXcOGByvX8tD88wRULgk1ubP4svVBBalfPu hHkdouSyYWPfrvXdqJA2kX2uHOxixQedeGJnnHl tAL23BZJwiT3rY6JhRIqcSa7tsDG0oO3pATVvML TvZDNbjR1wfECcl2A6TMwukwFvprYlyXekTWV8A WQuXHBhclxwYXJccGFyfQ== CPT Code(s) (test code = 1604) y6mupQGcLZQlhVZ8XyIaOVHtu2upz3RquZTm cGF cQPkfyLPedyByyg72gFH2jH09CB0aVRUsXiI7ZF VvkvI5Cen9CVHjLEWdaJDjE463l5vwx7jbohLmw PY4yDyuCSGqdlyrSbY8KCclQWLahmldKDr0XOvb JAZtyLU0ZOZmhAPsD7TdXGWaYD0hpnk5YPE2JRa sVUIaUuA5VTFiqALkDSSzrHbgSIgkq401WUC3Ur QoXKEhssRgeHjczQ0yKnRqDTQ0OPOoCQz3ZGHtz n0= CLINICAL HISTORY (test code = 9330) w2emoTLeRXNxkFV5KeVbICRgk9hgh1J sdHBncGF eMDtowKMavdJbom12jXF7xI34YV6aZZTtNpU8AD QdvdD5Eiy1JUYqOEJngFHzV326t6rqm0mnxfPss MX5xJhqFOSpypxlIuD5XYbaAITgepooKXc5ADqy GQDxbJF2SHQloIKpO4BaTYRkIS4jkkg6FST1AOn tQKOxMeP7HBSqyYTlJDOzbUhbTZdfp591ZJC2Bp LoDZQijaIalSrrdG2dRxQwCODCSL5crBpsdLtwy N1msUXfAvMoc5uutjRrKS4jATWoJLEdFB6iFXVi nlMvm55hsMM8KY5seCVcDuUoaR3fcEslFKJgzFp wJ0NzeFFsuXFsiHJzfDBgVVZfyAibs8BrkZMavT FpblxwYXJ9 GROSS DESCRIPTION (test code = d5mnfPTuNOBvwXLIBPOeT5lnkeWzUCWreYAr Z3B [id number]) ysebrHFfrJA3eUB7pbCpkaTRdhNLvHO5LIAQmEn CnRYXclCWnsrErCrHxYXAfmMWikTG3LSPzMJ6od mueYWyeKLrkUECgfbZ4GDZecWIeB7YqLTHkLJ1p tlzmNRO0JPoklO3ytfKZHlbgHr5woRGvhOazUiM gAsRlVEScFCKmBDAunDfrYJXeJVy8xG4OJdspY3 9xp1Q8Jyn1GHZyWYQaG6GdLY1aTQRsrBEkB12JO upeDPC1DABGQoihDCCiAK6Vj6tiYXMceCKfKOZ8 DDgkcCBfIMIoQEBvCQp3SPFuMJhecNAcGJ8evGu yRzuqdKijv3CbcMCaARlhURKtTXOrLLzyKZLjZC 8BQtKtIFHdCBh1RnpqCUh8CQx1JE7TNdBfZHXoG WriJPm3GcZnGUa5FQxwFJ3DOJPgYGTpLZXlMjW8 RSM9RVGzBYPkPoHiSJBoOGCcYGzmCXvzuXUmDU5 aiDueiNQdrlTQRhNEyM7sBL3glB6zgAMmXC9YVT OahPUYBKW9VG4nBGUBRprnbNZmPPYbxOucPZwtk W0lML7YRSn1ksQnJIZlMDoejdQoUDJjS0YzgtVd GSldBCHjee4adBnwAGecZrPgKZBon8z6xXL7dAD tvEZ7qMFveAjeIaEeAD4zaWYkTE3fMUyhXPqgqw Reo2UoRK54rHEzylVgonAvUYP0WtIcMQpsTZKaa W0mKV7obAXbCNXwDAVsjTXwYEYgGxXldDqha9Zi UHUpCNqlUV16ryMnCZ0vjK8lKEUvKq3sLeHsF17 vs5HefXo7nJQrKDzwMIRemN2dnQ0pNNYkNMFguc ICLcroEIMkMDudV4IiFRDpNfBxPEndgVmijW0yF EHdI86vk8AMl4NiLHCuRMfwu3wspJrly9WuzBFp GPswUKUulQMpKMeqnW3lXbKwu3nddJv1TUsrttG 0UYUfst3QHvwpTjoueNplh9BfpQFyJIpnZGEpRL VnEHvtVARfZD6DPxVwXHQaPTa3LkdhBPq2RMc1H E4FMrAiOQFyPLxjKXg7YjWnYMc4XAlnFE7IOTNl IJTaCXC1AwF4DJE4AAGxLUHjBhAmTYLrLDSrYFs hEXqhrCLrHT8bvBjqhdR6VUQcTBpqWIJtRKCcj9 CrzLdjD5AtuZStCb0waHBuMK8BIJGigPBJOHU5C O4oHKHCRedpuIOdRSAyxDanNUzmxG2jSS4AQBh6 jcGjGDEuZPxmlcTgVZXaK2XggyGaWXdiIBVylb0 rpKnyUBhqYlFxMTMwv0h2bXC5mLRruYW4aXIjdW noRfZvBT8fhYAyUW7xTUlrIXvyvyJul5IkFA74l CXuwsRbwzUdBAU9VxZaPNrvTBDfZYG1zmfsMXJh n9AwrTArBSNeOTLukDYdWWJsOsChoGmvg6XbVOP vXRkuFI05fjGqNAIkGD1dMKT6bxkfIlPiPpWcZ2 5nh2HgqOh0fXSdJTwyVQDhfQ7nhP1vJuRdSVKin jWVHermGWHnWRkyU6LsFMIuRxRnLYdzoSqmcO5j QCVxJ71ds3JKl0XbKZCoNRdae0uzrCbhf2MirKW pESevSEIenEBrYOfxsZ9iCyQup3zwlNy6QIakqe V8NYNjpe8ISmltGbpfuUrxp4XgoTFzSJrjROCeB GPkZDezDFRjQP0YTqEcENPcTPb6FmztDJb8EMa9 MG5YWkIxHQDjXYkdDUm2XSHuMEn1ZJmkMW7JDUU nZDZeWDS9VNX5TUL5CIHgZGVmNyRfQDYmWHCkVU myDQlrwMQrCX6kvTztjiL4VXPsXCypJMUpITNfu 3MkiXIIt03waSRapEBdVZVhnsDLNoufgTtqSsDz dERvYzEgDQpcbHRycGFyXGxpbjBccmluMCANClx sdHJjaFxjZjFcZnMyMCBSZWNlaXZlZCBpbiBmb3 JtYWxpbiBsYWJlbGVkIHdpdGggdGhlIHBhdGllb jGgG7O5yqIhXZ5qWJEfVUXiN4GdGENoZ79iMLYl wU2wDENpLC6wAWy6DRWpJFQiXiqxSAfxlYCnYVJ wp7FrCWx8gyPgSLIkCMXow7xnvRYrv52rsWN6eN TcqNQwFjMzT09ogwEqWU8yIIW0rriaMsTkJdTgG 29pCL7xRZGuBqHvrBCppRWgfJJ7XWOduQ3ayW86 seMjiiXSEY2vzTUtJY7KXKUkymYUOkpyChLzNyM yMiANClxwbGFpblxlcGljTmVzdERvYzBccGxhaW 09UZDbzVZgBUM4LC4bTIYzlzjtHSUkDDPtDVE8I IozfV52oCNjTXDaQONcpOBcxC0Sk4aoKVJoxGUj DEE5HVtsxUGxFEXcSGIeYWzkBwDiZ9FQUZCrJpN 6HfDmGOTqENx8HVufV2PIKKXfWQR8WcM9VKc5Nx J8XCh8BGFDTq9wJjWkLVVkKzK2SDC5QPd3OLmqo SNlEMwfSwEQzajbgQUhBAFfHJtmyfM3PFBoOKLe vJgbcQ8bQL8vPFQvfTbbHYpoBZObyWzkZ5ZbMcs uDSFwZDqeJTXmF37ry1UMa0JiDB2CYJx5adQyix uhfR8rMONioyCqOVahgXHsA0roY7OdPSVnQwYbV kIzDXv9EPHbtB8yTi7eiFGapX5etIDnMFyyDZM7 fZGbKACdDOYmUZDlMQ55TOfFRIWtnqZzJGesuFY kaWNhbCByZWNvcmQgbnVtYmVyIGFuZCBcdTgyMj IuZZv4Z3Yvo4nsyRPgYZPvw1EzXHj7xvNdNLTqJ LCfs2tlbCBtk48xmHI0rARuqGOmPiEuL52dsiIw UN1pUKD6cyuoMxEqMvJxH96qSQ0dYWIdPyVivWP ddADilAU1NSXguL3ltY17dfWzarPSJL0dsXMaGC 0KXHBhciANClxjZjBcZnMyMiANClxwbGFpblxlc KtjZbHajNVzGzTejMjyyN18VSOayKVcKET0QV0g OOVgynviGYSvOEIgOSU0GBoljU03qWXmMBJkWEE fxJCvaD7Nz9yuLCOblBHgPED1NFzoaAKfJHVgPY KzDVpaKtMiK1CEHVYxCyL7HgNzTSEuUYw5OVawH 1ZPHETbIOS9LyC7BLh2QdD3JUa5OGCYPm2tSvAc IGMpPlA7WDS4HMx1VClwlFWdQIliKdPBvolpiGK xZUTbZIavmnN1CHVfBFRysRzdcO5uUM1jZqmgxG O7AKNBGGQuiS1veWKOmFA8mS2qsLGvME1JRHNbh EJNKAF7JZ4iSBFWXhptxLPnFDDjzRdmDPolqO0v NG4XSAk2drLgIAIwPRxnqnKnYCAmF8YjwfNoLIg aPUYcyj7foNrvPAnxWvTcINPvl4y8sPJ3iSTosQ S2yJLegRxtNcDtIG4rrYSvIS4iCJjwKIpjkeKqw 5YbFO86jUDdcpFbrxOaSMW7DaPhTSyqCUEqoM1n s0fbWAOlzo1zsrRlWOqtYXNrYqYgzzUvAyZ7VO9 gq82gaIV5dPCskJDqDzGnV96cdgIgLP5nEUW1eb fpPiUiVcIdS32tKD8yISGdGsHfxMIwaRYpoDA4W LDquD1chL16meTkwjJWXK7laCZlZM9WASOwbfEH ClxjZjBcZnMyMiANClxwbGFpblxlcGljTmVzdER zOjFawCjceD14WOMhfXTjGVN1XA3bDPIckvtbQM VyVDLsHVO5LIydnO15nSOjEMYjCPXdvAReqX0Rv 1tnXTRiiUGrYGD0BGdclFWgORGbGIDwDEdaWbWo C4IETOWjJyQ0AhMpYVBrKUy7DOmlU6IEVCAmLGP 6XtB9SME4BsX3LTp0LVFUNv5sMfUkHLUkAnu2LZ B1HEa0MJmzzFHwPNmpUlPUlltzfGZqFQPyHEcyd xQ5PPXkHYElvGvayY6vAw5yH42hp50aFmyaxND9 SOISOK0my94jOCDpvaMLZhnfxUfxQzVysDUoEiZ gDQpcbHRycGFyXGxpbjBccmluMCANClxsdHJjaF mmHtJgCvBcSMACUJSbrLElNUYvevHot0DjWCwsy vClAFAstRZaHQvuzIkblCiwJJJpzDvhjjYgQ0O5 juIwEZ2vZPCfXQEkS1UuYBCnF81lZOYccU2xHDG nCC0nLKu5RUKnDQYlEbchN19xk89xUtgogRS7QH MnJU7el49dACKjZRMooSx1xCPhGHP1VL1wr43ec UY9vPSldGQmOnGoQ96nnpSdUIAzkisjyscuPO9m PBVkCZWknDZljNPqmUE2IQUwzC6aqQ59ghOrimQ EJO6reVNlLV9MRARosrZXCtGtBHvkEOKiB8TpxI 3jTF4JHtjmLMKmSWCQL6WqQ80mlXUqUF8RFMKax iANClxjZjBcZnMyMiANClxwbGFpblxlcGljTmVz qYSkZlXnnScskW84LNBqrUAjGWX3YH3qPDHkqil iUUNcAFOkSFZ3ZPxlkB42gYTnSDDrEGEteJRqsX 3OJUXgCYV4DYkvmI00jUNwJS4WVKMjOUC7GDNzt VVuMPH7NO4rgR4NyZ== MICROSCOPIC DESCRIPTION (test code = d9tbkOQgSXRvfHR4HhLbPSByj0zdc5 [place] 434191) xEAqyzEAlbaBxyk25kUS3pH91FO1oFVYnPdP5HP XfceW7Tyv4DRXtAKGstAWvJ530e2boh7zcitLjn MX5mTdyYHJxsaevDrX9CZjcPSWwgfucDPt0WMyb OIMxcJN0BMIodHHvM1LhCHVdVP0mkib8INC4BQv rOAVbQgP1XXAavXGnXAThnIroCIoek333GWL7Cp MhFGCzrpBzyXmqxZ8uCvLvHDVCSSYdu1YlJUJcG HBhclxwYXJkXHBhcn0= Gross assessment was performed at (test [facility] enter, code = 2777) Department of Pathology, [address] [place] [address], Technical component was performed at [facility] er, (test code = 2778) Department of Pathology, [address] [place] [id number], Professional component was performed at [facility] enter, (test code = 2779) Department of Pathology, [address] [place] [address], [facility] Hospital[facility]issue [id number] 14:33:25 Test Item Value Reference Range Interpretation Comments Case Report (test code Surgical Pathology = 104) Report Case: [id number] Authorizing Provider: Ivory Burrows Collected: 10/25/2021 11:28 AM Ordering Location: [facility] Endoscopy Received: 10/25/2021 01:51 PM [...] Colon Biopsy, Random DIAGNOSIS (test code = x2cusQVeUWMug9mfHBKvyK 3220) FuZzEwMzNcZnRuYmpcdWMx IHtccnRmMVxlcGljOTYwMl puavZlMKDgiDKzM4Xggnoy HHrcED4tRU0bbRhpjTUkfV LrWNJkNbYai5afg149nKDe n4xbBFWBfqdgxQb9pBjoB3 3mi7M1DutvP11zaDOdBRW9 ALUlWXFfzCStLKApKSK7YA TzpRByL1flPQIvFV4ruptr XFzqFEpeWSUhpEN1HFEgsQ VxC6XaUQRbFQshXNPjhqj8 AjOwTx0pcGZsfJtlICyaPI VxOSCoFHkoNHWsQmVxUA4x J96LOJscIl9TYSbhUUXLN7 BTWTpccGFyXHBhcmRcbGk3 SxZgxZeqIzCwELN0OlSvAT R8UTT7FXg4eAWfTsBqsOoi YLijSIF1UtEvQHi2bJVaFa DzxKb4AKDzNIQ5CGt3GCs1 eDB3TLTuiZi7ZsNqFOK1Ol wlJXg6cGo6PYNgbNm7LkLe YIZ9NFWjNEAaBBYRWA5HVK 0PIGHUZDMLH1HoU0gHHIZC WMNDBFlsCZ5MUdCOQTdMJZ HBUOPYUNyIXIVHS6TKRS9P GQPyBH5IZSgMMRLQTAAGWJ jBW5OMMAPYY4dQSXJWHPQY QWNue9CvWBFthK6oxyGsZE BhclxsaTBcbGluMFxwYXJc sYTrNFMFAiEJWE0BJRTNIE ETWF0SR55qZXKPQ4QZNStb dFHmJNJcvFCwJU5aX3fWY9 0KQbTBSVmGW78OUQPVYIYt LQWZU9OKBXOCSODLRLMZSm lUSVNccGFyXGIwXHBhciBD UcNCZ68HROMIKKMxXJVBX7 RBTCwgQklPUFNZOlxwYXJc aHy8MnGeoYquDvJnYC9fF2 XOQS9UKDJyPTXHE4IHZKbH KKfaFvXOR0YLYuHvKDUFWY oAGBwXXOHQTCXRY5JYNOBd viZqCH6BULSCH61PUmBGL7 UdV0JjRN6KCeKHAMhACNTF QPLEZPWLO7xUR3PFLLfSDP aNNIPBAJ2gxEZzTUXypuni yHYgeExuZOCOYrRPS69POU THLEEcTDENS1cJVQXIYRNO JH2OH1v6FGFmannvlGffNJ rhfO02FuSqMQWPNSHXGM5M VvHZQBSEE3TvF1xBZYUWLO FDVElWRSBFUElUSEVMSUFM RVLPEX5GTHHuhYLgBM3aDz 8hOXUSPKrUVT3VAGECBoPQ TlRSQUVQSVRIRUxJQUwgRU 9LMI5BBGlUITQmLQEkY8FQ TlxwYXJccGFyXGxpMFxsaW 7aISMmYORAPl2VNwBYVIiA WITZLKKVUZ1YT3b4ZDPsqn oiwDdfWKbmjW97RnOxZECV JKUTAROCWdUIK6USNhNSZJ 4KV47RUPNLXODWALSNN35C DuRZSKGFFH9QSX5RRJNPF3 iBWNxNYTMxAC7LQLZFD4uB VVXIElOSZMeDBTBKH6IBTK HLQk4GDf6DSUwZPGuwJOVp bGkwXGxpbjBccGFyIEYuIE YMJN5NDQBZSS3EL19mCIQO L6SXVGqmiUXfEThjLnOuRV qirgihDAIwDQNOFP6SPNEe SNTAZ7DABMcSSShxAx3UAY wgTFlNUEhPSUQgQUdHUkVH IXRLOqqpQ3SOSSCLNUUIOS 1VSNXUG55BLbtYFM5NJAVB Ct3JHXICEIVDRRCpbqIeLU 1JTlVURSBGUkFHTUVOVCBP NqVFNtEWEZEQF2JPSCMbN9 5EGJpzBB7ZSJPFEP2EUPSF SQUOJ3AjyICcXLpbVHbxzF 6dOJDfuq09MXL7EiGxq6R2 WAS1BDWnKVDbo7ykGLDesS FuZzEwMzNcZnRuYmpcdWMx SKJaHtWgz1fci326uQLfw9 ztEXKnRaP9xHWmPTNgxJXx Y160NJJhQYcwu3fxb0IoKZ VrjSRxz1R5KBIUuamrmPi5 sJhdG82fx1V0KzqeB3ltBX TkGXJrR0QqCA2rPHImZgd0 AMJ7OIJ5ZPDfZQRdG8UfPM 0nQNTelWFaXPr4l4dbyJxs BHPrNTQ2c0exGStehlWsVU 1ueo5bqVv9z3fsviNtOENh AGAgqNNLSZMbI7HtgXofQo 6ucFq6lLamGzgyREJ0Qyu0 SG5ykq60vxk1qKjwSZFlxn geHmG1LSruBTLtllirKCt1 KAmwIFXiwCR5FUIhuUOoI3 QrDMLiXU5tjwf7ZEI1BYjo CKLiIzY5NFJktYUsLEDsbS oxRIlvb128ERD3HmNjJY5g C0Ovf0Y2hX2knBDvAAQloK LsXfArJISluh9ooRZuFVil u5TfRBJ9wwT3lCJvtEMiVP ZeCsC0OQvnMF6udt71DFMq CKR8jn8naZNzpPquycVztV YcHEidC6UaTZUki600NBYp G2UrNMBxj5Y1kbOfMaDeVM LsaKI8seH0LIRmPM8bdxna w5ogBAtjONudIXQosmJ7jz H4KZJoeJZfW7FonK9kREUh PJ7nekulc1zwOFG9MAuqXC UbSLQ5DvToUINab3Hpkeb0 WsFxd5SjjCRuTQgxO60py6 37EXJvkmNyV4jbwBRvoorp nYGuwbgrFVqmruX0XJKdEO psllxoUZJkWMccZ8nwUcZu UAFfdVtrQTupj0AaJNAzCT MfJkPthZOqKNNoXek4QBGd iGYqIMEjVaWcJ7gmipgvZp XQWYMdy7poY3uvoRIKnGKl S5RvHUwfrqNkPZioEMzdHw McJSc7KT25KwNjJZHpwo31 COMMENT (test code = k8njeWBnGYWlbBG7MqVbUY 9680) Okb9lur6GuvCZxnPBqKNjf jJEpwjLiwi48pNS4eX14DJ 4pNNSgLzT5KWBmwvL7Hhn8 DLNiKHZcwXJnX035z0cpw8 bogeTkfSB0mRapYYOdqoqn RlA2STtfTTXguejxYDu0YF qqIKVudMY5XNZwtMKiX3Rn ONFzKS8iggn0TSA7MVjtPY TgHvN1HQWtrGCrIPOcqUti NVlop940VIE4XxZxTNAnmq LciIf1BnNobJslBIHdHUL5 WjZ7BYh0eNY1YLLmjLqgLe LiOGN4GYWoZEm1lWIyJJAp uIu4AnFsTGN2EmU9FEw7wL ciKDRasOz0NFZuRQR9KGL1 UQq4kSreJcYlwGhcDFP5JJ xwbGFpblxmczIwIEZvciBQ QZV9ENSfCSqwlMWuUCQprC dxaUfkhTSwcK0reR5giVVr o8znBTiciSdsiq6uhZZjEJ ZyxBfjlORsRTOnnEo1FFL6 yDLmVI8jkYJjJLAxodAnac NpZGVudGFsIGZpbmRpbmcg YdA0QQr2PWCpqkSmOMBuYG VuIGluIHBhdGllbnRzIHdp zVzjNKJnGAG7alqjRJhzpY jim1BcO0SzjeQzpzSbV7So i74kLXAwIHgoDUJshNCcD8 YjGZngu3EoOTVingMrZdca VQiad7F1UMJii0VsSZParS VzcyBsaWtlbHkgZGlmZmVy LR18aGPsneDcoxOesAVgDW pymVGvuz0cCHrznXKlKVWp h36xRZJvIUroGrhwTSX4Sb EcwU7vE7CnVAWykHslGcSi aXNlYXNlKSwgdmlyYWwgZW 50ZXJpdGlzLCBkcnVnIHJl SND0tR6fFXjcSxweLW4JAX yDnzWvqT2pRwFjlFvievPt lrGpyvpsFXKaz10qRT56qE BrLYBlzG6hE35gLOTer6au I9vbNBLxurEaiGnykoDbUG JmdzWusFG9lE5nVAzllAne sTIupHleFZ94MRLbdW6mE7 DyHJicAf0xnYY4xH5iNDPg EUEeNKNjxY4ueXPjm5N8DH lrbfEwnfLssLziQWD9YCIm XHBhclxwYXJccGFyfQ== CPT Code(s) (test code b4inpCJhFTCzpGN5LnEdOU = 3357) Dca3paa6MouQUqsFPhFYzl wCMheaVdrn97hGK1pU78OS 9rJHZnRfY7BZXrnxL9Myn8 LUFbCVFbtYBtQ315g1yhg9 avyeJgwMN2cTvyALGyhqge EbV9ZOptHRNzocgiVTg8OM hgYOFnmYI8ASXbmCIwX5Qc WVTsYN4mueq0UHG9WXthVY SrDfY9EHEdbLRnIPXtdDjd UPmtx993OIL1FyYnAESchi LrrRxsoH6sAfZxNMO7JREn PPc9LGInyx4= CLINICAL HISTORY (test z9sbsLJsEKSjaSW9LjFkYF code = 3356) Urj2ybv6NfqQPfmCBnNLjv zPJytgNifa83kBH5lD17YY 0nOVLdLdV1EHVrccZ5Ham9 SEJzUPAryHJmX515z6fbt5 mnpcAcuDG0sWqvUHGoclar ZrY2ELolLWJuqkkqLMa9AJ uvSUXfgRJ5SFPzuQQcD8Pz YABwHY2nryg3ZQG4IRseBO TwDvU6FGKeuTUqUQWcxNvo NSucz694HMT8EzGfXYYitp WefXzjpZ5tXyMvEUINLV2b vEiqcHkxqL2icDAzDpQzh4 yprgEuYM6qOGBvKLXtLK1b NQJjreHcp87ltGS1TA5uyN OcUlQhkK9izVohAOAqyDqi V8QjdEVsbPOyyRRmhYCfEQ QhmPpaz9QvcAQrcGRpxumi YXJ9 GROSS DESCRIPTION (test z8vjqOMkPGFszYVIUGGvP0 code = 2228967059) ettqVqYVJnhKHwR0Qihmhl DFxeYL6uGX0yjNemrGKoiJ DcVU8LPEKdLhBtBQPyuJMq opAzFxFhYRElaYHfsWL3IM PxPG2hezfwRFvbPSwaCMZz raN6RWHwdDOlC8XfVQVfEO 3wszsgOTD5WKlnrI6xntFR IiajDe2smZLqeYyfOgEfOl NoYXJzZXQwXGZuaWwgQXJp THw7qD4MXxkrT31kx5G3Ck n4AHNyLQTzI2ScAV5xBYLo aDJyE05QNgzqLUW9AKNMIv gsTVSjJD2Wl3mjHPOblKZk ICZ7JEtbwQUwYOIzMLGlND d2AFSwLAvolCGfVF1pvYdm OjbwuTcev8XzuTVmYYyqLW IwPODfAPvfMYTsRI9XVkNb NLNxFYj0GucsLIo3AMo0UV 3XCkVhOUAfWVdpFGp3WkNh EJi3JNfwTQ1MBSXvELHiIO KkDzA9GMF0NXPiVAAeAmMl XGYgQXJpYWwgXFxmbCBcXG 1ftBojgDZxqvCTKvBOzK5m DO7arN8wqITtQV5SJRZjfR VYLCI2LA8nZFKJJscooSXl FYUdmVrrJYpomV7eIM9VAS k7mxKsGETmGCqugcFmTUSx Q2GzokCwJYhmOEQoac9skW prWGkcJeVhNDWfw9z5zSG1 kJQufNR7iRUyfGyzDlPgUM 9xgNSvIW4mNGpiLBbkhtWu x8RnOQ08bKKqlxZgdlYzAR D9CvExBTlrOREooB5nXD1e bCIgYXJlIDMgdGFuIHNvZn WvmBzaj2HqAWFvAVecQT52 qdHbDS4riN9hGITiZj3rGh QhM01ie4CzrGp7iORoGPvq PVPtlJ2yqV2yYBIgBSHwup QAIyrgUWLuDDcfW2SxWECu YfGoPWrcnPwizT4nUGWkI0 4wc8XLs0QvMYQxRMxst5qf xXhjr1MhuRHmQLycTNUelH PjBPffeI2dXzYrp0frgYx8 KVovenV7UXAjhf7EWdykPk henEdnv7CroWOyKNdmRFFj ZNTaSChuNDVfKR1MPnHcEM KnUBw0SrtdJJg4IGf8ZF7S TtTjIWMsSXgaXSr7SpJaYK t5NWjxPJ6QGKJwWMNqIQX0 IlA4HTE4CGKjTQKwLgHiQR MnCRNjGVzwEPrslRAgRE2a yBaqqrT8ZYMpCRmwPXFbVG Mkh7TzlJnaD8BpbKAhUd1j sSExMP7VOAUnqHCAFFT9WY 9jMSANClxsdHJwYXJcbGlu IOvdkL6oBS8EUBk7kzOgDN EwZPxfvsIwWGNkE6VictAb BWhmFXVdxf6koRyeAXpsDo CaREMza3j4tQD8uSHmjVM0 nBJbtEmfSoMiHR1tiBChTU 3kSYtcLSmbnrYom0IgAO54 rDKvjoWaqiIaEXP6NsKbDB jzESTqQHL9wrkhRDZqw7Qy eSIgYXJlIDIgdGFuIHNvZn SfeUvrn4LtKLTkOJcyHX86 uoMmUDWlZR2yXIR4scauWj EcCpVoD89wo7GxxKk4oDKl ZTzwAUZseP5mqD2mMuSnWB JofoDKYqmbXIRpKQsnC5Kg NRLkDlMyMBpzqMqnzV3mOZ SsT68pa1MJj6WgWTCqJKaw h7henTzbi1RuvKPaYGitMJ QljWObXFwenI4zZmTqz1oe xPv2SLeadqQ5SHBujb0QMm rkOnahtQvtr4IurZIfAWkx WTVtPGAfKZqpTISwCR9RFo LcZWIbRXs8IwpaXCv3GIf3 MW1RQnKnSMFgWXvxNNq5IN VrMIq9OCizVI9KURNsXTYp ZQH6HXX0ITA6CSIuIEVkSc BcXGYgQXJpYWwgXFxmbCBc OJ4pmTjofrF5EUEwKGbzKR YsVFLou4XeqSVMo47jzIDd dXMuXHBhciANClxlcGljTm VzdERvYzEgDQpcbHRycGFy XGxpbjBccmluMCANClxsdH JjaFxjZjFcZnMyMCBSZWNl yYTsYDTxphDar5TfOLqdtd BsYWJlbGVkIHdpdGggdGhl DLKdfQwkayGpW8I8kbSaAA 9hBRUaZROcO8GcAAIlN12p XMYbjW7rLOVxAL2gBEf4II IyMCBcJzkzZGlzdGFsIGVz o7ZtMNe2ltThUIGhVLVsg0 lxjHFzc35dkLS0oVUzoRCf TrCsV23vvnJbUJ4wVDN7zp uoMgCeExXcD88hKY2pWKAt BzJtwKYjxSKsvBF5JBIxxU 1edE52noUdaaRDIA2loSPt BU2VKZVzbuSVAlraTwZxDo MyMiANClxwbGFpblxlcGlj QbMjyWBbTpEraZrvfY76SR GjaUKbYYM3ZG3rCGBokoqs VVEvVMDsQVQ6UKeyfD99cE ZzZCAfWMCfxSIatB6Wo9lv AILfxLIcWBE6JAjlfPJqOX IhVNXaCPakAgKcI4JULQWd MuS4PsCdJZQkLAr4DMptB0 XVVETzHHM0HmO1KKw1DuZ8 QXz6KAKIYa3lQtHfNHOpFv D9IER7EFm0UMhiuUTrVMrq ZiBBcmlhbCBcXGZsIFxcbm W9VPAvARZtdVnhxJ6eQY3g UHJveGltYWwgRXNvcGhhZ3 MsPzenQWJkEKysYMEgM44i k6DFd1TcEB5LBMr3dhCiin nivP5mJSRkpdFlUVtopCKu M2cdQ2FuZXGsHrNiGpBtXB p4UOXvjB5bLq2tyYVksA1n jCXgRWpuVAG5sKWoUVNnEB LdISJwZO74ICrOZSUssbPs ZSwgbWVkaWNhbCByZWNvcm QgbnVtYmVyIGFuZCBcdTgy NbCvNMf6S3Glb9qwkCAoBM Yru0FcCCo8hiAvAPNgETEy a1mxaNPkq68xhUT1rFIjrO ZeHzImT02oqpQwVM3gFVI0 zyceYkTfWpXgY09tDW0eBP ZzBfBrcCWlmRFnyXE0MURi kM3nwY40mgCldnFNPO1xgJ RaWP7RHWWotaLHKbayEbGk ZnMyMiANClxwbGFpblxlcG bsYuTjwSXoNqMsaYhqcH06 LYRpwPNhXUC8ES0aXQWmxc tuHUTiAIQdFWJ9RGondF40 lQLxSYPyGUUjdLNfyF1Yh6 bgSECybQBuBOK6SUxudVWr JSUcBAFvVUngArXgP4XFKL UjLdC5VnMiQMVdLVg5VZlv W0ZDJWTtLIW3VmG5OSf0Wq M2KOn5JKCGSf6lKnIfFCFq IfW6ITP3ROu3UQunnZJdNF xcZiBBcmlhbCBcXGZsIFxc klV6TMAvMQNcbPfbmE8jIU 4oAejqnDP2LUAGVXLnbO4f vGZZeCD0cM8srPLiRM1GUD SzzBPYOOX3YT3xAHEKMboz zFDjBRAqgTilGXxvmT1yJX 1VXRp9lbYwLTUpCItsqyFm WLBdQ6XshlNyAMimNTHtvn 0knJbkFIiiRmBhKGRkj5b4 tWM6wBIfsFW2eDQfyKdwLa UzWN3mvUMkPR1bLYhoBJxg geLsw8ZjXT87gQFpzsOoaf JrLHG1CuKcCNkwGOAezN3x s6cnYIKxju8vdcQpYVljHC SmAhAvrdCjEpT3ZE9ke04e mIW3nUYyuTQkGlRqT56rmf QfDU5hRLZ1htixNiZlTfQt F76vML1fMQYaItUugPWmaR RkrHN9HBXetQ9sbY36hgTa bwOWAC0cwXLnMB0STXBtep ANClxjZjBcZnMyMiANClxw bGFpblxlcGljTmVzdERvYz JflXviqU58WASrcZCfDGB0 II5oOJMextrxBOVaLGMpTE T5HSobrB43rWUnXHEtOIKw yVYwjQ5Cp9ioITQktSNxRC B6LGgjtDLuOUUvHDPzVQej IhFyX0BIQMFfIfL7KnLwQG UnQTx2KJnxK0CMILQbREP8 VfV6MQP6FmQ2TLc7NGOEPz 6jJkBeQIUaNsb0KNE4HWm7 IFxcdCAyIFxcZiBBcmlhbC LpACWtKRouvpA8OIDhRZKc fRqfzJ3dDm6qX88xu63xZc huwEU7VXOCVW5pj07dLAGl ciANClxlcGljTmVzdERvYz EgDQpcbHRycGFyXGxpbjBc cmluMCANClxsdHJjaFxjZj FcZnMyMCBSZWNlaXZlZCBp qvFeo8UxEBkkagIzDMCleC VkIHdpdGggdGhlIHBhdGll auZwU1Q3rxYsHE1cVTAxNQ MvY3LkNYBeJ57yWXSwjA2l TZPaFI9gXKk9GKTxIVXpHj rdF65fq37sJkrjeSM2UGPr AV1os34xHJHkLTZrbTp4pH CpNKE9YM8mr20nfKJ8yTHv iHLiUcNnW94mzpUqRAFndh pwhsetYD9zWITfKFSrhRZm rSYinSG7SUTrhR2vxH13bn DgmsXGVC0ouVCiSC0MNYZj tcPJNlDpPTqzGWYxH1WbhN 5wJM7ZTaqxEQUxBXFFD9Kg Q88lzKInGM3SEYMcucASVt xjZjBcZnMyMiANClxwbGFp blxlcGljTmVzdERvYzBccG iceG62LUIfzCQoBEM6QJ8a SMGhucfeWYIgNOYbEJH3GV tkuI14ePDuKPZeSQMnfLQh mE7LIPSyTSO2LLakyK59gV DwUJ0RTODoIQX6JENjoOJt YBC4LK8xhZ3EjX== MICROSCOPIC DESCRIPTION l1fsuGUpWHLskMW8IqJpVW (test code = 3371) Bmd3tjn1FeaRFpdBDjDGgk vWEvynVvab34rEC4gV24TV 5rFHGwClL5JBPkriV4Lqp5 KPCwOYQmeGWoD746p9tme1 jftdBdxRM9cJljJGGymqyg PeK5KXsvDMUxtijcQNu4ZZ zdNKCuwKV1KZSmbUQnC2Au RXTiCN1mgvf3FFU4YRjoJK UpPiN1GDXawHAuWAKudQun QBxir997CCS5QrBzTIMvqu GafGvqdK2vRxJyLHQFFPLr o3SgDJKlVMIygovxNGKbIZ Bhcn0= Gross assessment was [facility] performed at ([facility], = 2777) Department of Pathology, [address] [place] [address], Technical component was [facility] performed at ([facility], = 2778) Department of Pathology, [address] [place] [address], Professional component [facility] was performed at ([facility], code = 2779) Department of Pathology, [address] [place] [address], [facility] Hospital[facility] [id number] 14:33:25Surgical Pathology Report Case: [id number] Authorizing Provider: Ivory Burrows Collected: 10/25/2021 11:28 AM Ordering Location: [facility] Endoscopy Received: 10/25/2021 01:51 PM [...] INTESTINAL MUCOSA Signing Pathologist Direct Phone Line: [phone] signed by Kai Delgado MD on 10/26/2021 [...] withpertinent clinical information and serologic studies is suggested.[id number] history of colon cancer, change in consistency [...] submitted in toto in F1.DMITRI Oviedo, RAEANN ([facility])cmPerformed [facility], Department of Pathology, [address] [place] [address], [facility] [place] [address], [facility], [facility] of Pathology, [address] [place] [address], [facility], Department of [facility]ology, [address] [place] [address], UAFR , [id number] 09:13:00 Test Item Value Reference Range Interpretation Comments Test Urine, POC (test code Negative = 3575335) Control line present?, POC (test Yes code = 9862660) Background clear?, POC (test code = Yes 0441073) UPT Cassette Lot #, POC (test code = 7965062 0332815) UPT Cassette Expiration Date, POC 02/09/23 (test code = 5316279) Lab Interpretation (test code = Normal 70461-4) [facility] , [id number] 09:13:00 Test Item Value Reference Range Interpretation Comments Test Urine, POC (test code Negative = 0950867) Control line present?, POC (test Yes code = 1059291) Background clear?, POC (test code = Yes 1223099) UPT Cassette Lot #, POC (test code = 5534986 [id number]) UPT Cassette Expiration Date, POC 02/09/23 (test code = 6464217) Lab Interpretation (test code = Normal 94514-8) [facility]
--- NOTE | 2023-02-13 19:21 | RAD REPORT ---
EXAM DESCRIPTION: RAD - Chest Pa And Lat (2 Views) - 02/13/2023 7:03 pm CLINICAL HISTORY: COUGH Chest pain. COMPARISON: <Comparisons> FINDINGS: The lungs are clear. The heart is normal in size. No displaced fractures. IMPRESSION: No acute or concerning finding suspected.
--- NOTE | 2023-02-13 20:55 | ER ---
Nurse's Notes [facility] Name: Huang Farris Age: 18 yrs Sex: Female : 2005 Arrival Date: 02/13/2023 Time: 17:36 Bed IW2 Private MD: Diagnosis: Viral infection, unspecified Presentation: 02/13 18:04 Chief complaint: Patient states: started with sore throat, cough, runny nose, vomiting, iw ears feel full,. started day night , also has headache and body aches. Coronavirus screen: Client presents with at least one sign or symptom that may indicate coronavirus-19. Ebola Screen: Patient negative for fever greater than or equal to 101.5 degrees Fahrenheit, and additional compatible Ebola Virus Disease symptoms Patient denies exposure to infectious person. Patient denies travel to an Ebola-affected area in the 21 days before illness onset. No symptoms or risks identified at this time. 18:04 Method Of Arrival: Ambulatory iw 18:05 Initial Sepsis Screen: Does the patient meet any 2 criteria? No. Patient's initial iw sepsis screen is negative. Does the patient have a suspected source of infection? No. Patient's initial sepsis screen is negative. Risk Assessment: Do you want to hurt yourself or someone else? Patient reports no desire to harm self or others. Onset of symptoms was February 11, 2023. 18:05 Acuity: NATHAN 3 iw Historical: - Allergies: 18:06 No Known Allergies; iw - PMHx: 18:05 Anemia; Anxiety; depressive disorder; iw - Social history:: Smoking status: Patient uses street drugs, marijuana. Screenin:01 [facility] ED Fall Risk Assessment (Adult) History of falling in the last 3 months, lg3 including since admission No falls in past 3 months (0 pts). Abuse screen: Denies threats or abuse. Denies injuries from another. Nutritional screening: No deficits noted. Tuberculosis screening: No symptoms or risk factors identified. Assessment: 21:01 General: Appears in no apparent distress. comfortable, Behavior is calm, cooperative. lg3 Pain: Complains of pain in generalized body aches. Neuro: No deficits noted. Flowers Agitation-Sedation Scale (RASS): 0 - Alert and Calm Level of Consciousness is awake, alert, obeys commands, Oriented to person, place, time, situation. Cardiovascular: No deficits noted. Respiratory: No deficits noted. Airway is patent Respiratory effort is even, unlabored, Respiratory pattern is regular, symmetrical. GI: No deficits noted. : No deficits noted. EENT: No deficits noted. Derm: No deficits noted. Skin is intact, is healthy with good turgor, Skin is dry, Skin is normal, Skin temperature is warm. Musculoskeletal: No deficits noted. Circulation, motion, and sensation intact. Range of motion: intact in all extremities. Vital Signs: 18:04 BP 126 / 87; Pulse 117; Resp 19; Temp 98.6; Pulse Ox 96% on R/A; iw 21:01 BP 124 / 81; Pulse 97; Resp 18 S; Pulse Ox 98% on R/A; lg3 ED Course: 17:38 Patient arrived in ED. mg5 17:40 Brian Edgar PA is PHCP. cp 17:40 Jaimie Greco MD is Attending Physician. cp 18:05 Triage completed. iw 18:06 Arm band placed on. iw 19:05 XRAY Chest Pa And Lat (2 Views) In Process Unspecified. EDMS 21:01 Patient has correct armband on for positive identification. lg3 21:01 No provider procedures requiring assistance completed. lg3 21:03 Patient did not have IV access during this emergency room visit. lg3 Administered Medications: 20:59 Drug: Ondansetron PO 4 mg PO once Route: PO; lg3 Medication: 21:01 VIS not applicable for this client. lg3 Outcome: 20:54 Discharge ordered by MD. cp 21:01 Discharged to home ambulatory, lg3 21:01 Condition: stable 21:01 Discharge instructions given to patient, Instructed on discharge instructions, follow up and referral plans. medication usage, Demonstrated understanding of instructions, follow-up care, medications, Prescriptions given X 2, 21:04 Patient left the ED. lg3 Signatures: Dispatcher [employer] EDMS Halina Metcalf RN RN Brian Edgar PA PA cp Gibson, Lacie, RN RN lg3 Tiana Hernandez mg5 Corrections: (The following items were deleted from the chart) 18:06 18:05 Allergies: H -Pylori; iw iw 18:07 18:05 Acuity: NATHAN 4 iw iw
--- NOTE | 2023-02-13 20:55 | EDPHYS ---
Physician Documentation [facility] Name: Huang Farris Age: 18 yrs Sex: Female : 2005 Arrival Date: 02/13/2023 Time: 17:36 Bed IW2 Private MD: ED Physician Jaimie Greco HPI: 02/13 18:20 This 18 yrs old Female presents to ER via Ambulatory with complaints of Flu cp Symptoms, Dizziness, Weakness, Shortness Of Breath. 18:20 The patient or guardian reports cough, that is intermittent. Onset: The cp symptoms/episode began/occurred yesterday. 18:20 Associated signs and symptoms: Pertinent positives: earache, fever, sore throat, cp Pertinent negatives: chest pain, diarrhea, vomiting. Severity of symptoms: in the emergency department the symptoms are unchanged despite home interventions. Historical: - Allergies: 18:06 No Known Allergies; iw - PMHx: 18:05 Anemia; Anxiety; depressive disorder; iw - Social history:: Smoking status: Patient uses street drugs, marijuana. ROS: 18:25 Constitutional: Positive for body aches, chills, Negative for fever, poor PO intake, cp 18:25 Eyes: Negative for injury, pain, redness, and discharge, cp 18:25 ENT: Positive for ear pain, sore throat, Negative for drainage from ear(s), difficulty swallowing, difficulty handling secretions, 18:25 Cardiovascular: Negative for chest pain, edema, palpitations, 18:25 Respiratory: Positive for cough, shortness of breath, Negative for wheezing, 18:25 Abdomen/GI: Negative for abdominal pain, nausea, vomiting, and diarrhea, 18:25 Back: Negative for pain at rest, pain with movement, 18:25 Skin: Negative for rash, 18:25 Neuro: Positive for dizziness, headache, weakness, Negative for altered mental status, 18:25 All other systems are negative, Exam: 18:30 Constitutional: The patient appears in no acute distress, alert, awake, comfortable, cp non-toxic, well developed, well nourished, 18:30 Head/Face: Normocephalic, atraumatic. cp 18:30 Eyes: Periorbital structures: appear normal, Conjunctiva: normal, no exudate, no injection, Sclera: no appreciated abnormality, Lids and lashes: appear normal, bilaterally, 18:30 ENT: External ear(s): are unremarkable, Nose: is normal, Mouth: Lips: moist, Oral mucosa: moist, Posterior pharynx: Airway: no evidence of obstruction, patent, Tonsils: with erythema, no enlargement, no exudate, erythema, that is mild, exudate, is not appreciated, 18:30 Neck: ROM/movement: is normal, is supple, without pain, no range of motions limitations, no meningismus, Lymph nodes: no appreciated lymphadenopathy, 18:30 Chest/axilla: Inspection: normal, 18:30 Cardiovascular: Rate: tachycardic, Rhythm: regular, 18:30 Respiratory: the patient does not display signs of respiratory distress, Respirations: normal, no use of accessory muscles, no retractions, labored breathing, is not present, Breath sounds: are clear throughout, no decreased breath sounds, no stridor, no wheezing, 18:30 Abdomen/GI: Inspection: abdomen appears normal, Palpation: abdomen is soft and non-tender, in all quadrants, 18:30 Neuro: Orientation: to person, place \T\ time. Mentation: is normal, Cerebellar function: is grossly normal, Motor: moves all fours, strength is normal, Sensation: is normal, Gait: is steady, at a normal pace, Vital Signs: 18:04 BP 126 / 87; Pulse 117; Resp 19; Temp 98.6; Pulse Ox 96% on R/A; iw 21:01 BP 124 / 81; Pulse 97; Resp 18 S; Pulse Ox 98% on R/A; lg3 MDM: 18:10 Patient medically screened. cp 19:00 Differential diagnosis: bronchitis, flu, URI. cp 20:53 Data reviewed: vital signs, nurses notes, lab test result(s). cp 20:53 Counseling: I had a detailed discussion with the patient and/or guardian regarding the cp historical points, exam findings, and any diagnostic results supporting the discharge/admit diagnosis, lab results, to return to the emergency department if symptoms worsen or persist or if there are any questions or concerns that arise at home. 02/13 18:10 Order name: COVID-19 SARS RT PCR; Complete Time: 20:51 cp 02/13 18:10 Order name: Influenza Screen (a \T\ B); Complete Time: 20:51 cp 02/13 18:10 Order name: Strep; Complete Time: 20:51 cp 02/13 19:38 Order name: Throat Culture EDMS 02/13 18:10 Order name: XRAY Chest Pa And Lat (2 Views); Complete Time: 20:51 cp 02/13 20:51 Interpretation: Report reviewed. cp Administered Medications: 20:59 Drug: Ondansetron PO 4 mg PO once Route: PO; lg3 Disposition Summary: 02/13/23 20:54 Discharge Ordered Notes: Location: Home cp Problem: new cp Symptoms: have improved cp Condition: Stable cp Diagnosis - Viral infection, unspecified cp Followup: cp - With: Private Physician - When: 2 - 3 days - Reason: Worsening of condition Discharge Instructions: - Discharge Summary Sheet cp - Viral Respiratory Infection cp Forms: - Medication Reconciliation Form cp - Thank You Letter cp - Antibiotic Education cp - Prescription Opioid Use cp - Patient Portal Instructions cp - Leadership Thank You Letter cp - Work release form rv1 Prescriptions: - Bromfed DM 2-30-10 mg/5 mL Oral syrup - administer 10 milliliter ORAL route every 6 hours as needed for cold symptoms; cp 180 milliliter; Refills: 0, Product Selection Permitted - Zofran 4 mg Oral tablet - take 1 tablet ORAL route every 12 hours As needed; 20 tablet; Refills: 0, cp Product Selection Permitted Signatures: Dispatcher [employer] Halina Moise, RN RN iw Brian Edgar PA PA cp Gibson, Lacie RN RN lg3 Corrections: (The following items were deleted from the chart) 18:06 18:05 Allergies: H -Pylori; tomasa randolph
[2023-02-13] MEDS ORDERED: ONDANSETRON 4 MG (ODT) TAB ONE (21:09)
[2023-02-13 21:17] VITALS: TEMP 98.6
[2023-02-13 21:19] VITALS: BP 124/81; O2SAT 98
== END 2023-02-13 21:04 | disposition home or self-care (01) ==
LOC: ER 17:36
DX: B34.9 Viral infection, unspecified (principal); Z11.52 Encounter for screening for COVID-19
CPT/HCPCS: 87070; 87081; 87635; 87804 ×2; 71046; 99283; Q0162

== ENCOUNTER → 2023-04-10 | Emergency (ER) | payer OTHER ==
--- NOTE | 2023-04-10 19:07 | ER ---
Nurse's Notes [facility] Name: Huang Farris Age: 18 yrs Sex: Female : 2005 Arrival Date: 04/10/2023 Time: 18:53 Bed IW4 Private MD: Diagnosis: Candidal stomatitis;Acute gingivitis Presentation: 04/10 19:01 Chief complaint: Patient states: Pt c/o red, painful ulcers to right upper mouth/cheek tl4 x 2 weeks that is getting progressively worse and more painful. Pt also states her tongue is white and uncomfortable. Pt has recently been on abx for recurring yeast infections and BV. Coronavirus screen: Vaccine status: Patient reports being unvaccinated. At this time, the client does not indicate any symptoms associated with coronavirus-19. Ebola Screen: Patient negative for fever greater than or equal to 101.5 degrees Fahrenheit, and additional compatible Ebola Virus Disease symptoms Patient denies exposure to infectious person. Patient denies travel to an Ebola-affected area in the 21 days before illness onset. No symptoms or risks identified at this time. Initial Sepsis Screen: Does the patient meet any 2 criteria? No. Patient's initial sepsis screen is negative. Does the patient have a suspected source of infection? No. Patient's initial sepsis screen is negative. Risk Assessment: Do you want to hurt yourself or someone else? Patient reports no desire to harm self or others. Onset of symptoms was April 03, 2023. 19:01 Method Of Arrival: Ambulatory tl4 19:01 Acuity: NATHAN 4 tl4 Triage Assessment: 19:05 General: Appears in no apparent distress. Behavior is calm, cooperative. Pain: tl4 Complains of pain in mouth. EENT: No deficits noted. No signs and/or symptoms were reported regarding the EENT system. Neuro: No deficits noted. Cardiovascular: No deficits noted. Respiratory: No deficits noted. GI: No deficits noted. No signs and/or symptoms were reported involving the gastrointestinal system. : No deficits noted. No signs and/or symptoms were reported regarding the genitourinary system. Derm: No deficits noted. No signs and/or symptoms reported regarding the dermatologic system. 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 - Social history:: Smoking status: Reported history of juuling and/or vaping. Screenin:07 [facility] ED Fall Risk Assessment (Adult) History of falling in the last 3 months, tl4 including since admission No falls in past 3 months (0 pts) Confusion or Disorientation No (0 pts) Intoxicated or Sedated No (0 pts) Impaired Gait No (0 pts) Mobility Assist Device Used No (0 pt) Altered Elimination No (0 pt) Score/Fall Risk Level 0 - 2 = Low Risk Oriented to surroundings, Maintained a safe environment, Educated pt \T\ family on fall prevention, incl call for assistance when getting out of bed, Assessed \T\ reinforced patient's understanding of fall precautions, Provided non-skid footwear, Hourly rounding (assess needs \T\ fall precautionary measures) done, Used ambulatory aids as needed (educated on \T\ assisted with), Used gait belt as appropriate. Abuse screen: Denies threats or abuse. Denies injuries from another. Nutritional screening: No deficits noted. Tuberculosis screening: No symptoms or risk factors identified. Assessment: 19:12 Reassessment: No changes from previously documented assessment. Patient and/or family tl4 updated on plan of care and expected duration. Pain level reassessed. Patient is alert, oriented x 3, equal unlabored respirations, skin warm/dry/pink. Vital Signs: 19:01 BP 125 / 76; Pulse 74; Resp 18; Temp 98.3(O); Pulse Ox 99% on R/A; Weight 63.5 kg; tl4 Height 5 ft. 5 in. ; Pain 8/10; 19:01 Body Mass Index 23.30 (63.50 kg, 165.1 cm) tl4 19:01 Pain Scale: Adult tl4 ED Course: 18:57 Patient arrived in ED. im 18:58 Ericka Mccauley PA-C is PHCP. sb4 18:58 Jese Aquino DO is Attending Physician. sb4 19:04 Triage completed. tl4 19:06 Arm band placed on right wrist. tl4 19:08 Patient has correct armband on for positive identification. Provided Education on: ed tl4 process. 19:08 No provider procedures requiring assistance completed. Patient did not have IV access tl4 during this emergency room visit. Administered Medications: No medications were administered Medication: 19:07 VIS not applicable for this client. tl4 Outcome: : Discharge ordered by . sb4 19:12 Discharged to home ambulatory, tl4 19:12 Condition: stable 19:12 Discharge instructions given to patient, Instructed on discharge instructions, follow up and referral plans. medication usage, Demonstrated understanding of instructions, follow-up care, medications, 19:13 Patient left the ED. tl4 Signatures: Ericka Mccauley PA-C PA-C sb4 Ewelina Jernigan Toni tl4
--- NOTE | 2023-04-10 19:08 | EDPHYS ---
Physician Documentation [facility] Name: Huang Farris Age: 18 yrs Sex: Female : 2005 Arrival Date: 04/10/2023 Time: 18:53 Bed IW4 Private MD: ED Physician Jese Aquino HPI: 04/10 19:11 This 18 yrs old Female presents to ER via Ambulatory with complaints of Facial sb4 Swelling, Mouth Problem. 19:31 Patient reports a white substance that has been on her tongue for about a week now. She sb4 states that she will scrape it up and it still returns. She also reports pain in her right upper gum area and swelling. She states that she tried to see her PCP today but they could not fit her in and instructed her to come to the ED. She states that she has been dealing with a recurrent vulvovaginal yeast infection as well. INSURANCE CHECKER: 19:08 LMP N/A - control method, Not tl4 Historical: - Allergies: 19:05 No Known Allergies; tl4 - PMHx: 19:05 Anemia; Anxiety; depressive disorder; tl4 - PSHx: 19:05 None; tl4 - Immunization history:: Adult Immunizations unknown. - Social history:: Smoking status: Reported history of juuling and/or vaping. ROS: 19:31 Constitutional: Negative for fever, chills, and weight loss, sb4 19:31 ENT: Positive for Gum pain Tongue discoloration, 19:31 All other systems are negative, Exam: 19:31 Constitutional: This is a well developed, well nourished patient who is awake, alert, sb4 and in no acute distress. Head/Face: Normocephalic, atraumatic. Eyes: Extra-ocular motions intact. Periorbital areas with no swelling, redness, or edema. Skin: Warm, dry with normal turgor. Normal color with no rashes, no lesions, and no evidence of cellulitis. MS/ Extremity: Pulses equal, no cyanosis. Neurovascular intact. Full, normal range of motion. Neuro: Awake and alert, GCS 15, oriented to person, place, time, and situation. Motor strength 5/5 in all extremities. Sensory grossly intact. 19:31 ENT: Mouth: Gums: noted to have cellulitis, reddened, on the gums, Tongue: displays thrush, Vital Signs: 19:01 BP 125 / 76; Pulse 74; Resp 18; Temp 98.3(O); Pulse Ox 99% on R/A; Weight 63.5 kg; tl4 Height 5 ft. 5 in. ; Pain 8/10; 19:01 Body Mass Index 23.30 (63.50 kg, 165.1 cm) tl4 19:01 Pain Scale: Adult tl4 MDM: 19:07 Patient medically screened. sb4 19:31 Differential diagnosis: Thrush, stomatitis, gingivitis, dental abscess. Data reviewed: sb4 vital signs, nurses notes, and as a result, I will discharge patient. Counseling: I had a detailed discussion with the patient and/or guardian regarding the historical points, exam findings, and any diagnostic results supporting the discharge/admit diagnosis, the need for outpatient follow up, a dentist, to return to the emergency department if symptoms worsen or persist or if there are any questions or concerns that arise at home. Administered Medications: No medications were administered Disposition: 19:16 I was immediately available on-site in the Emergency Department for consultation in the ms3 care of the patient. Disposition Summary: 04/10/23 19:07 Discharge Ordered Notes: Location: Home sb4 Problem: an ongoing problem sb4 Symptoms: are unchanged sb4 Condition: Stable sb4 Diagnosis - Candidal stomatitis sb4 - Acute gingivitis sb4 Followup: sb4 - With: Private Physician - When: As needed - Reason: Recheck today's complaints, Re-evaluation by your physician Discharge Instructions: - Discharge Summary Sheet sb4 - Gingivitis, [id number] sb4 - Oral Thrush, Adult, [id number] sb4 Forms: - Medication Reconciliation Form sb4 - Thank You Letter sb4 - Antibiotic Education sb4 - Prescription Opioid Use sb4 - Patient Portal Instructions sb4 - Leadership Thank You Letter sb4 Prescriptions: - Peridex 0.12 % Mucous Membrane Mouthwash - swish 15 milliliter BUCCAL route 2 times per day; 100 milliliter; Refills: 0, sb4 Product Selection Permitted - Fluconazole 150 mg Oral tablet - take 1 tablet ORAL route once daily; 7 tablet; Refills: 0, Product Selection sb4 Permitted Signatures: Jese Aquino, DO DO ms3 Ericka Mccauley, CULLEN PA-C sb4 Logdaderrick, Kaushik tl4
[2023-04-10 23:03] VITALS: BP 125/76; TEMP 98.3; O2SAT 99
== END ==
LOC: ER 18:53
DX: B37.0 Candidal stomatitis (principal); K05.10 Chronic gingivitis, plaque induced

== ENCOUNTER → 2023-04-19 | Emergency (ER) | payer OTHER ==
--- NOTE | 2023-04-19 13:30 | ER ---
Nurse's Notes [facility] Name: Huang Farris Age: 18 yrs Sex: Female : 2005 Arrival Date: 04/19/2023 Time: 13:19 Bed IW2 Private MD: Diagnosis: Candidal stomatitis Presentation: 04/19 13:28 Chief complaint: Patient states: I think i have oral thrush. Coronavirus screen: At ko1 this time, the client does not indicate any symptoms associated with coronavirus-19. Ebola Screen: No symptoms or risks identified at this time. Initial Sepsis Screen: Does the patient meet any 2 criteria? No. Patient's initial sepsis screen is negative. Does the patient have a suspected source of infection? No. Patient's initial sepsis screen is negative. Risk Assessment: Do you want to hurt yourself or someone else? Patient reports no desire to harm self or others. Onset of symptoms is unknown. 13:28 Method Of Arrival: Ambulatory ko1 13:28 Acuity: NATHAN 4 ko1 Triage Assessment: 13:29 General: Appears in no apparent distress. General: Behavior is calm, cooperative, ko1 appropriate for age. Pain: Denies pain. Historical: - Allergies: 13:29 No Known Allergies; ko1 - Home Meds: 13:29 None [Active]; ko1 - PMHx: 13:29 Anemia; Anxiety; depressive disorder; ko1 - PSHx: 13:29 None; ko1 - Immunization history:: Adult Immunizations up to date. - Social history:: Smoking status: Reported history of juuling and/or vaping. Screenin:33 [facility] ED Fall Risk Assessment (Adult) History of falling in the last 3 months, ko1 including since admission No falls in past 3 months (0 pts). Abuse screen: Denies threats or abuse. Denies injuries from another. Nutritional screening: No deficits noted. Tuberculosis screening: No symptoms or risk factors identified. Assessment: 13:33 EENT: Reports oral thrush. ko1 Vital Signs: 13:28 BP 128 / 84; Pulse 77; Resp 16; Temp 97.3; Pulse Ox 100% ; ko1 ED Course: 13:21 Patient arrived in ED. mg5 13:23 Kristen Lackey FNP-C is PHCP. kb 13:23 Jese Aquino DO is Attending Physician. kb 13:29 Triage completed. ko1 13:29 Arm band placed on right wrist. Patient placed in waiting room, Patient notified of ko1 wait time. 13:33 Neli Bowser, RN is Primary Nurse. ko1 13:33 Patient has correct armband on for positive identification. Provided Education on: na. ko1 13:33 No provider procedures requiring assistance completed. Patient did not have IV access ko1 during this emergency room visit. Administered Medications: No medications were administered Medication: 13:33 VIS not applicable for this client. ko1 Outcome: 13:29 Discharge ordered by MD. kb 13:33 Discharged to home ambulatory, ko1 13:33 Condition: stable 13:33 Discharge instructions given to patient, Instructed on discharge instructions, follow up and referral plans. medication usage, Demonstrated understanding of instructions, follow-up care, medications, Prescriptions given X 1, 13:34 Patient left the ED. ko1 Signatures: Kristen Lackey, WEBSITE OPTIMIZATION STRATEGIST-C WEBSITE OPTIMIZATION STRATEGIST-Ckb Neli Bowser, RN RN ko1 Tiana Hernandez mg5
--- NOTE | 2023-04-19 13:30 | EDPHYS ---
Physician Documentation [facility] Name: Huang Farris Age: 18 yrs Sex: Female : 2005 Arrival Date: 04/19/2023 Time: 13:19 Bed IW2 Private MD: ED Physician Jese Aquino HPI: 04/19 13:32 This 18 yrs old Female presents to ER via Ambulatory with complaints of Rash - kb TONGUE. 13:32 Pt is a 18 year old female who presents with a white patch on tongue for one week. kb Denies pain, states it feels weird. Denies fever. Historical: - Allergies: 13:29 No Known Allergies; ko1 - Home Meds: 13:29 None [Active]; ko1 - PMHx: 13:29 Anemia; Anxiety; depressive disorder; ko1 - PSHx: 13:29 None; ko1 - Immunization history:: Adult Immunizations up to date. - Social history:: Smoking status: Reported history of juuling and/or vaping. ROS: 13:31 Constitutional: Negative for fever, chills, and weight loss, kb 13:31 ENT: Positive for white patch on tongue, 13:31 All other systems are negative, Exam: 13:31 Constitutional: This is a well developed, well nourished patient who is awake, alert, kb and in no acute distress. Head/Face: Normocephalic, atraumatic. Cardiovascular: Regular rate Respiratory: Respirations even and unlabored. No increased work of breathing. Talking in full sentences Skin: Warm, dry with normal turgor. Normal color. MS/ Extremity: Pulses equal, no cyanosis. Neurovascular intact. Full, normal range of motion. Neuro: Awake and alert, GCS 15, oriented to person, place, time, and situation. Moves all extremities. Normal gait. 13:31 ENT: Mouth: Tongue: displays thrush, Vital Signs: 13:28 BP 128 / 84; Pulse 77; Resp 16; Temp 97.3; Pulse Ox 100% ; ko1 MDM: 13:23 Patient medically screened. kb 13:32 Differential diagnosis: allergic reaction, stomatitis, candidiasis. Data reviewed: kb vital signs, nurses notes. Counseling: I had a detailed discussion with the patient and/or guardian regarding the historical points, exam findings, and any diagnostic results supporting the discharge/admit diagnosis, the need for outpatient follow up, an ENT specialist, to return to the emergency department if symptoms worsen or persist or if there are any questions or concerns that arise at home. Administered Medications: No medications were administered Disposition: 16:08 I was immediately available on-site in the Emergency Department for consultation in the ms3 care of the patient. Disposition Summary: 04/19/23 13:29 Discharge Ordered Notes: Location: Home kb Condition: Stable kb Diagnosis - Candidal stomatitis kb Followup: kb - With: Emergency Department - When: As needed - Reason: Worsening of condition Followup: kb - With: Private Physician - When: 2 - 3 days - Reason: Recheck today's complaints, Continuance of care, Re-evaluation by your physician Discharge Instructions: - Discharge Summary Sheet kb - Oral Thrush, Adult, [id number] kb Forms: - Medication Reconciliation Form kb - Thank You Letter kb - Antibiotic Education kb - Prescription Opioid Use kb - Patient Portal Instructions kb - Leadership Thank You Letter kb Prescriptions: - Nystatin 100,000 unit/mL Oral suspension - take 5 milliliters ORAL route every 6 hours for 7 days; 140 milliliter; kb Refills: 0, Product Selection Permitted Signatures: Kristen Lackey, SVETLANA SULTANAP-Jese Hickey DO DO ms3 Neli Bowser, RN RN ko1
[2023-04-20 21:36] VITALS: BP 128/84; TEMP 97.3; O2SAT 100
== END ==
LOC: ER 13:19
DX: B37.0 Candidal stomatitis (principal)